=== PATIENT | male | born 1935 | race Two or more races ===

== ENCOUNTER 2021-08-14 09:39 | Inpatient (IN) | payer OTHER ==
[~2021-08-14] VITALS: Ht 177.8 cm; Wt 78.8 kg
[2021-08-14] MEDS ORDERED: methylPREDNISolone SOD SUCC 125 MG/2 ML VL ONE (09:46)
[2021-08-14] MEDS ORDERED: methylPREDNISolone SOD SUCC 125 MG/2 ML VL IV ONE (10:00)
[2021-08-14 10:19] LABS: Basophils # (auto) 0 10 ^3/uL (0-0.2); Eosinophils # (auto) 0 10 ^3/uL (0-0.8); Monocytes # (auto) 0.6 10 ^3/uL (0-1.3)
[2021-08-14 10:20] LABS: Basophils % (auto) 0.1 % (0.0-2.0); Hematocrit 52.7 % (41.0-53.0); Hemoglobin 18.1 g/dL (13.5-17.5); Lymphocytes % (auto) 11.3 % (10.0-50.0); Mean Corpuscular Hemoglobin 34.2 pg (28.0-32.0); Mean Corpuscular Hgb Conc. 34.4 g/dL (32.0-36.0); Mean Corpuscular Volume 99.3 fL (80.0-100.0); Monocytes % (auto) 6.5 % (0.0-12.0); Neutrophils # (auto) 7.5 10 ^3/uL (1.6-8.6); Neutrophils % (auto) 82.1 % (37.0-80.0); Nucleated Red Blood Cells % 0.1 %; Red Blood Cells 5.31 10^6/uL (4.5-5.90); Red Cell Distribution Width 13.4 % (11.8-14.3); White Blood Cell 9.2 10^3/uL (4.4-10.8)
[2021-08-14 10:24] LABS: Magnesium 2.6 mg/dL (1.6-2.6)
[2021-08-14 10:28] LABS: Albumin 3.4 g/dL (3.4-5.0); Calcium 8.5 mg/dL (8.5-10.1); Potassium 3.6 mmol/L (3.5-5.1)
[2021-08-14 10:32] LABS: Total Protein 8.3 g/dL (6.4-8.2)
[2021-08-14 10:35] LABS: CRP High Sensitivity 9.19 mg/dL (< 0.3); Lactic Acid w/Reflex 3.4 mmol/L (0.4-2.0)
[2021-08-14] MEDS ORDERED: ASPirin 81 mg TAB PO ONE (11:00)
[2021-08-14] MEDS ORDERED: cefTRIAXone 1GM/50ML D5W 50 ML IV ONE (11:00)
[2021-08-14] MEDS ORDERED: AZITHROMYCIN 500MG/ 250ML 250 ML IV ONE (11:00)
[2021-08-14] MEDS ORDERED: ZINC SULFATE 220mg CAP or TAB PO ONE (11:15)
[2021-08-14 11:22] LABS: INR 1.07 (0.9-1.15); Partial Thromboplastin Time 33.3 sec (23.6-33.0)
[2021-08-14] MEDS ORDERED: MORPHINE SULFATE INJECTION 2 MG/ML SYRG IV PRN (16:15)
[2021-08-14] MEDS ORDERED: NITROGLYCERIN 0.4 MG SL TAB SL PRN (16:15)
[2021-08-14] MEDS ORDERED: REMDESIVIR PER PHARMACY 0 ML IV SCH ×2 (16:15→17:45)
[2021-08-14] MEDS: SODIUM CHLORIDE 0.9% 1,000 ML IV SCH (16:28)
[2021-08-14] MEDS ORDERED: ATOR40TA52 PO (19:47)
[2021-08-14] MEDS ORDERED: AMLO-489 PO (19:47)
[2021-08-14 21:48] VITALS: BP 107/74
[2021-08-15 05:48] VITALS: BP 117/76
[2021-08-15 09:09] VITALS: BP 109/61
[2021-08-15] MEDS ORDERED: ENOXAPARIN SOD 40 MG/0.4 ML SYRINGE SC SCH (10:00)
[2021-08-15] MEDS: DexAMETHasone SOD PHOS 10MG/1ML VIAL INJ IV SCH (10:27)
[2021-08-15] MEDS: cefTRIAXone 1GM/50ML D5W 50 ML IV SCH (10:27)
[2021-08-15] MEDS: ASCORBIC ACID 500 MG TAB PO SCH (10:28)
[2021-08-15] MEDS: AZITHROMYCIN 500MG/ 250ML 250 ML IV SCH (10:28)
[2021-08-15] MEDS: ZINC SULFATE 220mg CAP or TAB PO SCH (10:28)
[2021-08-15] MEDS: CHOLECALCIFEROL (VITD3) 1,000UNIT=25mCg TAB PO SCH (10:28)
[2021-08-15 11:43] LABS: Basophils # (auto) 0 10 ^3/uL (0-0.2); Basophils % (auto) 0.2 % (0.0-2.0); Eosinophils # (auto) 0 10 ^3/uL (0-0.8); Hematocrit 47.3 % (41.0-53.0); Hemoglobin 15.9 g/dL (13.5-17.5); Lymphocytes # (auto) 0.8 10 ^3/uL (0.4-5.4); Lymphocytes % (auto) 5.3 % (10.0-50.0); Mean Corpuscular Hemoglobin 33.5 pg (28.0-32.0); Mean Corpuscular Hgb Conc. 33.6 g/dL (32.0-36.0); Monocytes # (auto) 0.9 10 ^3/uL (0-1.3); Neutrophils # (auto) 12.9 10 ^3/uL (1.6-8.6); Neutrophils % (auto) 88.5 % (37.0-80.0); Nucleated Red Blood Cells % 0.1 %; Red Blood Cells 4.73 10^6/uL (4.5-5.90); White Blood Cell 14.6 10^3/uL (4.4-10.8)
[2021-08-15 12:04] LABS: Potassium 4.2 mmol/L (3.5-5.1)
[2021-08-15 12:05] LABS: BUN/Creatinine Ratio 32.5; Calcium 8.1 mg/dL (8.5-10.1)
[2021-08-15] MEDS: SODIUM CHLORIDE 0.9% 1,000 ML IV SCH (12:30)
[2021-08-15 13:00] VITALS: BP 120/73
[2021-08-15 16:02] LABS: Albumin 2.5 g/dL (3.4-5.0); Bilirubin, Direct 0.4 mg/dL (0-0.2)
[2021-08-15 16:04] LABS: Bilirubin, Total 0.6 mg/dL (0.2-1.0); Total Protein 5.8 g/dL (6.4-8.2)
[2021-08-15 17:23] VITALS: BP 113/62
[2021-08-15 19:03] LABS: Urine Bacteria FEW /hpf (None Seen); Urine Blood 1+ /uL (Negative); Urine Hyaline Cast MANY /lpf (0 - 2); Urine Specific Gravity 1.017 (1.001-1.035); Urine WBC 3 /hpf (0 - 3)
[2021-08-15 19:21] LABS: Protein, Urine 69.4 mg/dL (0.0-11.9)
[2021-08-15 22:00] VITALS: BP 141/65
[2021-08-16 05:00] VITALS: BP 118/71
[2021-08-16 07:48] LABS: Albumin 2.7 g/dL (3.4-5.0); Calcium 8.2 mg/dL (8.5-10.1); Potassium 3.9 mmol/L (3.5-5.1)
[2021-08-16 07:59] LABS: BUN/Creatinine Ratio 37.3; Bilirubin, Total 0.8 mg/dL (0.2-1.0); Total Protein 6.4 g/dL (6.4-8.2)
[2021-08-16 08:00] VITALS: BP 113/79
[2021-08-16 09:18] VITALS: BP 113/75
[2021-08-16] MEDS: SODIUM CHLORIDE 0.9% 1,000 ML IV SCH (11:09)
[2021-08-16] MEDS: DexAMETHasone SOD PHOS 10MG/1ML VIAL INJ IV SCH (11:09)
[2021-08-16] MEDS: AZITHROMYCIN 500MG/ 250ML 250 ML IV SCH (11:09)
[2021-08-16] MEDS: cefTRIAXone 1GM/50ML D5W 50 ML IV SCH (11:09)
[2021-08-16] MEDS: ASCORBIC ACID 500 MG TAB PO SCH (11:11)
[2021-08-16] MEDS: CHOLECALCIFEROL (VITD3) 1,000UNIT=25mCg TAB PO SCH (11:11)
[2021-08-16] MEDS: ZINC SULFATE 220mg CAP or TAB PO SCH (11:11)
[2021-08-16] MEDS: HEPARIN SODIUM (PORCINE) 5000 UNITS/ML 1ML VIAL SC SCH ×2 (11:12→22:02)
[2021-08-16 12:35] VITALS: BP 113/79
[2021-08-16] MEDS: ALBUTEROL SULF HFA 90MCG INH 200DOSE IN SCH ×2 (15:20→22:00)
[2021-08-16 17:00] VITALS: BP 105/67
[2021-08-17] MEDS: SODIUM CHLORIDE 0.9% 1,000 ML IV SCH (02:32)
[2021-08-17 05:00] VITALS: BP 120/61
[2021-08-17 06:39] LABS: Basophils # (auto) 0 10 ^3/uL (0-0.2); Basophils % (auto) 0.2 % (0.0-2.0); Eosinophils # (auto) 0 10 ^3/uL (0-0.8); Hematocrit 47.7 % (41.0-53.0); Hemoglobin 16.2 g/dL (13.5-17.5); Lymphocytes # (auto) 0.5 10 ^3/uL (0.4-5.4); Lymphocytes % (auto) 3.1 % (10.0-50.0); Mean Corpuscular Hemoglobin 33.7 pg (28.0-32.0); Mean Corpuscular Hgb Conc. 33.9 g/dL (32.0-36.0); Mean Corpuscular Volume 99.4 fL (80.0-100.0); Monocytes # (auto) 0.8 10 ^3/uL (0-1.3); Monocytes % (auto) 5.4 % (0.0-12.0); Neutrophils # (auto) 13.9 10 ^3/uL (1.6-8.6); Neutrophils % (auto) 91.3 % (37.0-80.0); Red Cell Distribution Width 13.2 % (11.8-14.3); White Blood Cell 15.2 10^3/uL (4.4-10.8)
[2021-08-17 07:07] LABS: Albumin 2.7 g/dL (3.4-5.0)
[2021-08-17 07:16] LABS: BUN/Creatinine Ratio 40.5; Bilirubin, Total 0.8 mg/dL (0.2-1.0); CRP High Sensitivity 1.29 mg/dL (< 0.3); Total Protein 6.2 g/dL (6.4-8.2)
[2021-08-17 09:00] VITALS: BP 141/85
[2021-08-17] MEDS ORDERED: REMDESIVIR PER PHARMACY 0 ML IV SCH (09:30)
[2021-08-17] MEDS ORDERED: ALBUTEROL SULF HFA 90MCG INH 200DOSE IN PRN (09:30)
[2021-08-17] MEDS: DexAMETHasone SOD PHOS 10MG/1ML VIAL INJ IV SCH (10:18)
[2021-08-17] MEDS: ZINC SULFATE 220mg CAP or TAB PO SCH (10:18)
[2021-08-17] MEDS: ASCORBIC ACID 500 MG TAB PO SCH (10:18)
[2021-08-17] MEDS: cefTRIAXone 1GM/50ML D5W 50 ML IV SCH (10:18)
[2021-08-17] MEDS: CHOLECALCIFEROL (VITD3) 1,000UNIT=25mCg TAB PO SCH (10:19)
[2021-08-17] MEDS: HEPARIN SODIUM (PORCINE) 5000 UNITS/ML 1ML VIAL SC SCH ×2 (11:08→22:04)
[2021-08-17] MEDS: AZITHROMYCIN 500MG/ 250ML 250 ML IV SCH (11:44)
[2021-08-17 12:42] VITALS: BP 132/81
[2021-08-17] MEDS: DOPamine 1600MCG/ML D5W 250 ML IV SCH (14:59)
[2021-08-17] MEDS: SOD CHL 0.45% 1,000 ML IV SCH ×2 (14:59→22:13)
[2021-08-17] MEDS ORDERED: REMDESIVIR 200 MG in NS 210ml LOADING DOSE ADULT IV ONE (15:00)
[2021-08-17 17:00] VITALS: BP 119/78
[2021-08-17 22:00] VITALS: BP 148/102
[2021-08-18] VITALS (63 sets, daily range): BP systolic 59–177; BP diastolic 28–113
[2021-08-18 06:28] LABS: Potassium 4.3 mmol/L (3.5-5.1)
[2021-08-18 06:42] LABS: Albumin 2.7 g/dL (3.4-5.0); BUN/Creatinine Ratio 32.5; Total Protein 6.5 g/dL (6.4-8.2)
[2021-08-18] MEDS: SOD CHL 0.45% 1,000 ML IV SCH (08:45)
[2021-08-18] MEDS ORDERED: MIDAZOLAM DRIP 50 mg/50mL 50 ML IV ONE ×2 (08:48→08:51)
[2021-08-18] MEDS ORDERED: fentaNYL Drip 2500mCg/250mlNS 250 ML IV ONE (08:49)
[2021-08-18] MEDS ORDERED: PROPOFOL 100 ML IV ONE (08:51)
[2021-08-18] MEDS ORDERED: METOPROLOL TARTRATE 1MG/1ML-5ML VIAL IV PRN (09:45)
[2021-08-18] MEDS ORDERED: NOREPINEPHRINE 8 MG/250ML KIT 250 ML IV ONE (10:04)
[2021-08-18] MEDS ORDERED: ACETAMINOPHEN 650 MG RECT SUPP PR PRN (10:30)
[2021-08-18] MEDS: DOPamine 1600MCG/ML D5W 250 ML IV SCH (12:45)
[2021-08-18] MEDS: AZITHROMYCIN 500MG/ 250ML 250 ML IV SCH (12:47)
[2021-08-18] MEDS: DexAMETHasone SOD PHOS 10MG/1ML VIAL INJ IV SCH (12:47)
[2021-08-18] MEDS: cefTRIAXone 1GM/50ML D5W 50 ML IV SCH (12:47)
[2021-08-18] MEDS: ZINC SULFATE 220mg CAP or TAB PO SCH (12:48)
[2021-08-18] MEDS: HEPARIN SODIUM (PORCINE) 5000 UNITS/ML 1ML VIAL SC SCH (12:48)
[2021-08-18] MEDS: CHOLECALCIFEROL (VITD3) 1,000UNIT=25mCg TAB PO SCH (12:48)
[2021-08-18] MEDS: ASCORBIC ACID 500 MG TAB PO SCH (12:48)
[2021-08-18] MEDS: fentaNYL Drip 2500mCg/250mlNS 250 ML IV SCH (12:49)
[2021-08-18] MEDS: PROPOFOL 100 ML IV SCH (12:49)
[2021-08-18] MEDS: MIDAZOLAM DRIP 50 mg/50mL 50 ML IV SCH (12:50)
[2021-08-18] MEDS: NOREPINEPHRINE 8 MG/250ML KIT 250 ML IV SCH (12:50)
[2021-08-18 13:00] LABS: Albumin 2.3 g/dL (3.4-5.0); Calcium 7.6 mg/dL (8.5-10.1); Potassium 4.3 mmol/L (3.5-5.1)
[2021-08-18 13:03] LABS: Bilirubin, Total 0.7 mg/dL (0.2-1.0); Total Protein 5.8 g/dL (6.4-8.2)
[2021-08-18 13:14] LABS: Hematocrit 47.2 % (41.0-53.0); Hemoglobin 15.5 g/dL (13.5-17.5); Mean Corpuscular Hemoglobin 33.3 pg (28.0-32.0); Mean Corpuscular Hgb Conc. 32.9 g/dL (32.0-36.0); Mean Corpuscular Volume 101.3 fL (80.0-100.0); Red Blood Cells 4.66 10^6/uL (4.5-5.90); Red Cell Distribution Width 13.6 % (11.8-14.3)
[2021-08-18 13:23] LABS: Basophils % (manual) 0 (0.0-2.0); Blast Cells 0; Eosinophils % (manual) 0 (0-7); Metamyelocytes % 0; Myelocytes % 0; Promyelocytes % 0; Reactive Lymphocytes 0
[2021-08-18 13:48] LABS: Band Neutrophils % (manual) 15; Lymphocytes % (manual) 3 (10.0-50.0); Monocytes % (manual) 4 (0-12)
[2021-08-18 14:05] LABS: CRP High Sensitivity 5.08 mg/dL (< 0.3)
[2021-08-18] MEDS ORDERED: SODIUM BICARBONATE 8.4 % INJ 50ML VIAL IV ONE (15:00)
[2021-08-18] MEDS ORDERED: REMDESIVIR 100mg 100 MG in SODIUM CHL 0.9% 230 ML IV SCH (15:00)
[2021-08-19] VITALS (90 sets, daily range): BP systolic 80–153; BP diastolic 42–86
[2021-08-19] MEDS: HEPARIN SODIUM (PORCINE) 5000 UNITS/ML 1ML VIAL SC SCH ×3 (02:19→21:35)
[2021-08-19] MEDS: SOD CHL 0.45% 1,000 ML IV SCH ×2 (02:52→04:45)
[2021-08-19] MEDS: fentaNYL Drip 2500mCg/250mlNS 250 ML IV SCH ×2 (03:00→16:16)
[2021-08-19] MEDS: MIDAZOLAM DRIP 50 mg/50mL 50 ML IV SCH ×2 (04:00→23:39)
[2021-08-19] MEDS: PROPOFOL 100 ML IV SCH ×3 (04:00→21:39)
[2021-08-19 05:05] LABS: Calcium 7.1 mg/dL (8.5-10.1); Magnesium 3.2 mg/dL (1.6-2.6); Potassium 4.3 mmol/L (3.5-5.1)
[2021-08-19 05:14] LABS: BUN/Creatinine Ratio 19.3; Bilirubin, Total 0.6 mg/dL (0.2-1.0); CRP High Sensitivity 15.6 mg/dL (< 0.3); Total Protein 4.9 g/dL (6.4-8.2)
[2021-08-19] MEDS: cefTRIAXone 1GM/50ML D5W 50 ML IV SCH (08:33)
[2021-08-19] MEDS: ZINC SULFATE 220mg CAP or TAB PO SCH (08:55)
[2021-08-19] MEDS: ASCORBIC ACID 500 MG TAB PO SCH (08:55)
[2021-08-19] MEDS: CHOLECALCIFEROL (VITD3) 1,000UNIT=25mCg TAB PO SCH (08:56)
[2021-08-19] MEDS: DexAMETHasone SOD PHOS 10MG/1ML VIAL INJ IV SCH (08:56)
[2021-08-19] MEDS: AZITHROMYCIN 500MG/ 250ML 250 ML IV SCH (08:57)
[2021-08-19] MEDS: D5W 5% 1,000 ML IV SCH ×2 (09:46→17:00)
[2021-08-19 12:17] LABS: Basophils # (auto) 0.1 10 ^3/uL (0-0.2); Basophils % (auto) 0.9 % (0.0-2.0); Eosinophils # (auto) 0 10 ^3/uL (0-0.8); Eosinophils % (auto) 0.3 % (0.0-7.0); Hematocrit 42.5 % (41.0-53.0); Hemoglobin 14.1 g/dL (13.5-17.5); Lymphocytes # (auto) 0.3 10 ^3/uL (0.4-5.4); Lymphocytes % (auto) 2.7 % (10.0-50.0); Mean Corpuscular Hemoglobin 33.8 pg (28.0-32.0); Mean Corpuscular Hgb Conc. 33.3 g/dL (32.0-36.0); Mean Corpuscular Volume 101.5 fL (80.0-100.0); Monocytes # (auto) 0.2 10 ^3/uL (0-1.3); Monocytes % (auto) 1.7 % (0.0-12.0); Neutrophils # (auto) 11.1 10 ^3/uL (1.6-8.6); Neutrophils % (auto) 94.4 % (37.0-80.0); Nucleated Red Blood Cells % 0.2 %; Red Blood Cells 4.19 10^6/uL (4.5-5.90); Red Cell Distribution Width 13.9 % (11.8-14.3); White Blood Cell 11.8 10^3/uL (4.4-10.8)
[2021-08-19] MEDS: DOPamine 1600MCG/ML D5W 250 ML IV SCH (12:45)
[2021-08-19 12:52] LABS: Potassium 4.7 mmol/L (3.5-5.1)
[2021-08-19 12:59] LABS: Albumin 1.9 g/dL (3.4-5.0); BUN/Creatinine Ratio 19.6; Bilirubin, Total 0.6 mg/dL (0.2-1.0); Calcium 7.1 mg/dL (8.5-10.1)
[2021-08-19] MEDS: NOREPINEPHRINE 8 MG/250ML KIT 250 ML IV SCH (17:58)
[2021-08-20] VITALS (93 sets, daily range): BP systolic 62–173; BP diastolic 36–96
[2021-08-20] MEDS: fentaNYL Drip 2500mCg/250mlNS 250 ML IV SCH ×2 (02:57→18:08)
[2021-08-20] MEDS: D5W 5% 1,000 ML IV SCH (04:48)
[2021-08-20] MEDS: MIDAZOLAM DRIP 50 mg/50mL 50 ML IV SCH ×4 (04:49→23:10)
[2021-08-20] MEDS: PROPOFOL 100 ML IV SCH ×3 (04:50→23:00)
[2021-08-20 04:56] LABS: Basophils # (auto) 0 10 ^3/uL (0-0.2); Basophils % (auto) 0.2 % (0.0-2.0); Eosinophils # (auto) 0 10 ^3/uL (0-0.8); Hematocrit 38.8 % (41.0-53.0); Lymphocytes # (auto) 0.2 10 ^3/uL (0.4-5.4); Lymphocytes % (auto) 2.2 % (10.0-50.0); Mean Corpuscular Hgb Conc. 33.6 g/dL (32.0-36.0); Mean Corpuscular Volume 101.1 fL (80.0-100.0); Monocytes # (auto) 0.1 10 ^3/uL (0-1.3); Monocytes % (auto) 0.9 % (0.0-12.0); Neutrophils # (auto) 11.2 10 ^3/uL (1.6-8.6); Neutrophils % (auto) 96.7 % (37.0-80.0); Nucleated Red Blood Cells % 0.2 %; Red Blood Cells 3.83 10^6/uL (4.5-5.90); Red Cell Distribution Width 13.9 % (11.8-14.3); White Blood Cell 11.6 10^3/uL (4.4-10.8)
[2021-08-20 05:06] LABS: Albumin 1.7 g/dL (3.4-5.0); Calcium 6.6 mg/dL (8.5-10.1); Potassium 4.2 mmol/L (3.5-5.1)
[2021-08-20 05:16] LABS: BUN/Creatinine Ratio 19.6; Bilirubin, Total 0.3 mg/dL (0.2-1.0); CRP High Sensitivity 17.9 mg/dL (< 0.3); Total Protein 4.6 g/dL (6.4-8.2)
[2021-08-20] MEDS: ZINC SULFATE 220mg CAP or TAB PO SCH (08:58)
[2021-08-20] MEDS: AZITHROMYCIN 500MG/ 250ML 250 ML IV SCH (08:58)
[2021-08-20] MEDS: DexAMETHasone SOD PHOS 10MG/1ML VIAL INJ IV SCH (08:58)
[2021-08-20] MEDS: cefTRIAXone 1GM/50ML D5W 50 ML IV SCH (08:58)
[2021-08-20] MEDS: ASCORBIC ACID 500 MG TAB PO SCH (08:59)
[2021-08-20] MEDS: CHOLECALCIFEROL (VITD3) 1,000UNIT=25mCg TAB PO SCH (08:59)
[2021-08-20] MEDS: HEPARIN SODIUM (PORCINE) 5000 UNITS/ML 1ML VIAL SC SCH ×2 (09:04→22:12)
[2021-08-20] MEDS: NOREPINEPHRINE 8 MG/250ML KIT 250 ML IV SCH (10:30)
[2021-08-20] MEDS: DOPamine 1600MCG/ML D5W 250 ML IV SCH (12:45)
[2021-08-20] MEDS: SOD CHL 0.45% 1,000 ML IV SCH ×3 (15:03→22:59)
[2021-08-21] VITALS (57 sets, daily range): BP systolic 94–145; BP diastolic 52–76
[2021-08-21 04:38] LABS: Basophils # (auto) 0.1 10 ^3/uL (0-0.2); Eosinophils # (auto) 0 10 ^3/uL (0-0.8); White Blood Cell 11.5 10^3/uL (4.4-10.8)
[2021-08-21 04:41] LABS: Basophils % (auto) 0.7 % (0.0-2.0); Hematocrit 37.5 % (41.0-53.0); Hemoglobin 12.6 g/dL (13.5-17.5); Lymphocytes # (auto) 0.2 10 ^3/uL (0.4-5.4); Lymphocytes % (auto) 2.1 % (10.0-50.0); Mean Corpuscular Hemoglobin 33.8 pg (28.0-32.0); Mean Corpuscular Hgb Conc. 33.7 g/dL (32.0-36.0); Mean Corpuscular Volume 100.3 fL (80.0-100.0); Monocytes # (auto) 0.4 10 ^3/uL (0-1.3); Monocytes % (auto) 3.3 % (0.0-12.0); Neutrophils # (auto) 10.8 10 ^3/uL (1.6-8.6); Neutrophils % (auto) 93.9 % (37.0-80.0); Nucleated Red Blood Cells % 0.1 %; Red Blood Cells 3.74 10^6/uL (4.5-5.90); Red Cell Distribution Width 13.7 % (11.8-14.3)
[2021-08-21 04:56] LABS: Albumin 1.6 g/dL (3.4-5.0); Calcium 6.8 mg/dL (8.5-10.1); Potassium 4.4 mmol/L (3.5-5.1)
[2021-08-21 05:01] LABS: BUN/Creatinine Ratio 20.7; Bilirubin, Total 0.3 mg/dL (0.2-1.0); Total Protein 4.5 g/dL (6.4-8.2)
[2021-08-21] MEDS: cefTRIAXone 1GM/50ML D5W 50 ML IV SCH (09:24)
[2021-08-21] MEDS ORDERED: Jevity 1.2 Cal/Fiber 1 Liter GT SCH (10:00)
[2021-08-21] MEDS: ASCORBIC ACID 500 MG TAB PO SCH (10:12)
[2021-08-21] MEDS: AZITHROMYCIN 500MG/ 250ML 250 ML IV SCH (10:12)
[2021-08-21] MEDS: HEPARIN SODIUM (PORCINE) 5000 UNITS/ML 1ML VIAL SC SCH ×2 (10:13→21:33)
[2021-08-21] MEDS: ZINC SULFATE 220mg CAP or TAB PO SCH (10:14)
[2021-08-21] MEDS: CHOLECALCIFEROL (VITD3) 1,000UNIT=25mCg TAB PO SCH (10:14)
[2021-08-21] MEDS: DexAMETHasone SOD PHOS 10MG/1ML VIAL INJ IV SCH (10:15)
[2021-08-21] MEDS: NOREPINEPHRINE 8 MG/250ML KIT 250 ML IV SCH (10:30)
[2021-08-21] MEDS: SOD CHL 0.45% 1,000 ML IV SCH ×2 (10:45→19:30)
[2021-08-21] MEDS: DOPamine 1600MCG/ML D5W 250 ML IV SCH (12:45)
[2021-08-21] MEDS: MIDAZOLAM DRIP 50 mg/50mL 50 ML IV SCH (21:35)
[2021-08-22] VITALS (22 sets, daily range): BP systolic 101–143; BP diastolic 45–72
[2021-08-22] MEDS: MIDAZOLAM DRIP 50 mg/50mL 50 ML IV SCH ×2 (00:36→04:58)
[2021-08-22 04:24] LABS: Basophils # (auto) 0 10 ^3/uL (0-0.2); Eosinophils # (auto) 0 10 ^3/uL (0-0.8)
[2021-08-22 04:27] LABS: Basophils % (auto) 0.3 % (0.0-2.0); Hematocrit 37.6 % (41.0-53.0); Lymphocytes # (auto) 0.2 10 ^3/uL (0.4-5.4); Lymphocytes % (auto) 2.2 % (10.0-50.0); Mean Corpuscular Hemoglobin 34.5 pg (28.0-32.0); Mean Corpuscular Hgb Conc. 34.5 g/dL (32.0-36.0); Mean Corpuscular Volume 100.1 fL (80.0-100.0); Monocytes # (auto) 0.5 10 ^3/uL (0-1.3); Monocytes % (auto) 5.3 % (0.0-12.0); Neutrophils # (auto) 9.1 10 ^3/uL (1.6-8.6); Neutrophils % (auto) 92.2 % (37.0-80.0); Nucleated Red Blood Cells % 0.1 %; Red Blood Cells 3.75 10^6/uL (4.5-5.90); Red Cell Distribution Width 13.5 % (11.8-14.3); White Blood Cell 9.8 10^3/uL (4.4-10.8)
[2021-08-22 04:38] LABS: Potassium 4.7 mmol/L (3.5-5.1)
[2021-08-22 04:52] LABS: Albumin 1.7 g/dL (3.4-5.0); BUN/Creatinine Ratio 23.6; Bilirubin, Total 0.3 mg/dL (0.2-1.0); Calcium 6.6 mg/dL (8.5-10.1); Total Protein 4.7 g/dL (6.4-8.2)
[2021-08-22] MEDS: SOD CHL 0.45% 1,000 ML IV SCH ×3 (04:59→13:45)
[2021-08-22] MEDS: PROPOFOL 100 ML IV SCH ×2 (05:00→19:01)
[2021-08-22] MEDS: fentaNYL Drip 2500mCg/250mlNS 250 ML IV SCH ×2 (07:52→18:58)
[2021-08-22] MEDS: cefTRIAXone 1GM/50ML D5W 50 ML IV SCH (08:36)
[2021-08-22] MEDS: ZINC SULFATE 220mg CAP or TAB PO SCH (10:13)
[2021-08-22] MEDS: CHOLECALCIFEROL (VITD3) 1,000UNIT=25mCg TAB PO SCH (10:13)
[2021-08-22] MEDS: AZITHROMYCIN 500MG/ 250ML 250 ML IV SCH ×2 (10:13→12:13)
[2021-08-22] MEDS: ASCORBIC ACID 500 MG TAB PO SCH (10:13)
[2021-08-22] MEDS: DexAMETHasone SOD PHOS 10MG/1ML VIAL INJ IV SCH (10:13)
[2021-08-22] MEDS: HEPARIN SODIUM (PORCINE) 5000 UNITS/ML 1ML VIAL SC SCH ×2 (10:14→23:37)
[2021-08-22] MEDS: NOREPINEPHRINE 8 MG/250ML KIT 250 ML IV SCH (10:30)
[2021-08-22] MEDS: DOPamine 1600MCG/ML D5W 250 ML IV SCH (12:45)
[2021-08-22] MEDS: BACITRACIN TOP OINT 1 UD PKG TOP SCH (23:38)
[2021-08-23] VITALS (19 sets, daily range): BP systolic 112–145; BP diastolic 57–76
[2021-08-23 04:33] LABS: Basophils # (auto) 0 10 ^3/uL (0-0.2); Eosinophils # (auto) 0.1 10 ^3/uL (0-0.8); Hematocrit 37.6 % (41.0-53.0); Hemoglobin 12.7 g/dL (13.5-17.5); Lymphocytes # (auto) 0.3 10 ^3/uL (0.4-5.4); Lymphocytes % (auto) 3.6 % (10.0-50.0); Mean Corpuscular Hemoglobin 33.5 pg (28.0-32.0); Mean Corpuscular Hgb Conc. 33.7 g/dL (32.0-36.0); Mean Corpuscular Volume 99.3 fL (80.0-100.0); Monocytes # (auto) 0.2 10 ^3/uL (0-1.3); Monocytes % (auto) 2.7 % (0.0-12.0); Neutrophils # (auto) 7.6 10 ^3/uL (1.6-8.6); Neutrophils % (auto) 92.7 % (37.0-80.0); Red Blood Cells 3.79 10^6/uL (4.5-5.90); Red Cell Distribution Width 13.1 % (11.8-14.3); White Blood Cell 8.1 10^3/uL (4.4-10.8)
[2021-08-23 04:45] LABS: Albumin 1.4 g/dL (3.4-5.0); Calcium 6.9 mg/dL (8.5-10.1); Potassium 4.8 mmol/L (3.5-5.1)
[2021-08-23 04:50] LABS: BUN/Creatinine Ratio 32.2; Bilirubin, Total 0.3 mg/dL (0.2-1.0)
[2021-08-23] MEDS: cefTRIAXone 1GM/50ML D5W 50 ML IV SCH (09:32)
[2021-08-23] MEDS: ZINC SULFATE 220mg CAP or TAB PO SCH (09:35)
[2021-08-23] MEDS: ASCORBIC ACID 500 MG TAB PO SCH (09:35)
[2021-08-23] MEDS: DexAMETHasone SOD PHOS 10MG/1ML VIAL INJ IV SCH (09:35)
[2021-08-23] MEDS: CHOLECALCIFEROL (VITD3) 1,000UNIT=25mCg TAB PO SCH (09:36)
[2021-08-23] MEDS: HEPARIN SODIUM (PORCINE) 5000 UNITS/ML 1ML VIAL SC SCH ×2 (09:37→22:00)
[2021-08-23] MEDS: NOREPINEPHRINE 8 MG/250ML KIT 250 ML IV SCH (10:30)
[2021-08-23] MEDS: DOPamine 1600MCG/ML D5W 250 ML IV SCH (12:45)
[2021-08-23] MEDS: SOD CHL 0.45% 1,000 ML IV SCH (16:55)
[2021-08-23] MEDS: BACITRACIN TOP OINT 1 UD PKG TOP SCH ×2 (16:55→22:00)
[2021-08-24] VITALS (40 sets, daily range): BP systolic 90–155; BP diastolic 43–77
[2021-08-24 06:41] LABS: Basophils # (auto) 0.5 10 ^3/uL (0-0.2); Basophils % (auto) 5.8 % (0.0-2.0); Eosinophils # (auto) 0 10 ^3/uL (0-0.8); Eosinophils % (auto) 0.4 % (0.0-7.0); Hematocrit 39.7 % (41.0-53.0); Lymphocytes # (auto) 0.5 10 ^3/uL (0.4-5.4); Lymphocytes % (auto) 5.1 % (10.0-50.0); Mean Corpuscular Hemoglobin 33.2 pg (28.0-32.0); Mean Corpuscular Hgb Conc. 32.7 g/dL (32.0-36.0); Mean Corpuscular Volume 101.3 fL (80.0-100.0); Monocytes # (auto) 0.8 10 ^3/uL (0-1.3); Monocytes % (auto) 8.3 % (0.0-12.0); Neutrophils # (auto) 7.6 10 ^3/uL (1.6-8.6); Neutrophils % (auto) 80.4 % (37.0-80.0); Nucleated Red Blood Cells % 0.1 %; Red Blood Cells 3.92 10^6/uL (4.5-5.90); Red Cell Distribution Width 13.6 % (11.8-14.3); White Blood Cell 9.4 10^3/uL (4.4-10.8)
[2021-08-24] MEDS: MIDAZOLAM DRIP 50 mg/50mL 50 ML IV SCH ×2 (08:08→14:01)
[2021-08-24] MEDS ORDERED: SODIUM BICARBONATE 8.4 % INJ 50ML VIAL IV ONE ×2 (09:30→09:51)
[2021-08-24] MEDS: cefTRIAXone 1GM/50ML D5W 50 ML IV SCH (09:35)
[2021-08-24] MEDS: ASCORBIC ACID 500 MG TAB PO SCH (09:36)
[2021-08-24] MEDS: ZINC SULFATE 220mg CAP or TAB PO SCH (09:36)
[2021-08-24] MEDS: DexAMETHasone SOD PHOS 10MG/1ML VIAL INJ IV SCH (09:36)
[2021-08-24] MEDS: CHOLECALCIFEROL (VITD3) 1,000UNIT=25mCg TAB PO SCH (09:37)
[2021-08-24] MEDS: BACITRACIN TOP OINT 1 UD PKG TOP SCH ×2 (09:37→22:00)
[2021-08-24 09:38] LABS: Albumin 1.6 g/dL (3.4-5.0); Calcium 6.9 mg/dL (8.5-10.1); Potassium 4.8 mmol/L (3.5-5.1)
[2021-08-24 09:42] LABS: BUN/Creatinine Ratio 34.6; Bilirubin, Total 0.3 mg/dL (0.2-1.0); Total Protein 4.2 g/dL (6.4-8.2)
[2021-08-24] MEDS: AZITHROMYCIN 500MG/ 250ML 250 ML IV SCH (10:07)
[2021-08-24] MEDS: HEPARIN SODIUM (PORCINE) 5000 UNITS/ML 1ML VIAL SC SCH ×2 (10:08→22:00)
[2021-08-24] MEDS: NOREPINEPHRINE 8 MG/250ML KIT 250 ML IV SCH (10:30)
[2021-08-24] MEDS: PROPOFOL 100 ML IV SCH (10:43)
[2021-08-24] MEDS: DOPamine 1600MCG/ML D5W 250 ML IV SCH (12:45)
[2021-08-24] MEDS: fentaNYL Drip 2500mCg/250mlNS 250 ML IV SCH (13:45)
[2021-08-25] VITALS (29 sets, daily range): BP systolic 101–148; BP diastolic 49–77
[2021-08-25 06:12] LABS: Basophils # (auto) 0 10 ^3/uL (0-0.2); Basophils % (auto) 0.1 % (0.0-2.0); Eosinophils # (auto) 0 10 ^3/uL (0-0.8); Eosinophils % (auto) 0.6 % (0.0-7.0); Hematocrit 39.1 % (41.0-53.0); Lymphocytes # (auto) 0.5 10 ^3/uL (0.4-5.4); Lymphocytes % (auto) 5.6 % (10.0-50.0); Mean Corpuscular Hemoglobin 33.6 pg (28.0-32.0); Mean Corpuscular Hgb Conc. 33.4 g/dL (32.0-36.0); Mean Corpuscular Volume 100.8 fL (80.0-100.0); Monocytes # (auto) 0.6 10 ^3/uL (0-1.3); Monocytes % (auto) 7.8 % (0.0-12.0); Neutrophils % (auto) 85.9 % (37.0-80.0); Nucleated Red Blood Cells % 0.1 %; Red Blood Cells 3.87 10^6/uL (4.5-5.90); Red Cell Distribution Width 13.5 % (11.8-14.3); White Blood Cell 8.1 10^3/uL (4.4-10.8)
[2021-08-25 06:48] LABS: Albumin 1.4 g/dL (3.4-5.0); Calcium 6.8 mg/dL (8.5-10.1); Potassium 4.8 mmol/L (3.5-5.1)
[2021-08-25 06:52] LABS: BUN/Creatinine Ratio 43.3; Bilirubin, Total 0.2 mg/dL (0.2-1.0); Total Protein 4.1 g/dL (6.4-8.2)
[2021-08-25] MEDS: cefTRIAXone 1GM/50ML D5W 50 ML IV SCH (09:28)
[2021-08-25] MEDS: DexAMETHasone SOD PHOS 10MG/1ML VIAL INJ IV SCH (09:58)
[2021-08-25] MEDS: ZINC SULFATE 220mg CAP or TAB PO SCH (09:58)
[2021-08-25] MEDS: ASCORBIC ACID 500 MG TAB PO SCH (09:59)
[2021-08-25] MEDS: HEPARIN SODIUM (PORCINE) 5000 UNITS/ML 1ML VIAL SC SCH ×2 (10:00→23:07)
[2021-08-25] MEDS: BACITRACIN TOP OINT 1 UD PKG TOP SCH ×2 (10:03→23:08)
[2021-08-25] MEDS: MIDAZOLAM DRIP 50 mg/50mL 50 ML IV SCH ×2 (10:30→20:49)
[2021-08-25] MEDS: NOREPINEPHRINE 8 MG/250ML KIT 250 ML IV SCH (10:30)
[2021-08-25] MEDS: AZITHROMYCIN 500MG/ 250ML 250 ML IV SCH (12:02)
[2021-08-25] MEDS: CHOLECALCIFEROL (VITD3) 1,000UNIT=25mCg TAB PO SCH (12:02)
[2021-08-25] MEDS: fentaNYL Drip 2500mCg/250mlNS 250 ML IV SCH ×2 (12:03→18:21)
[2021-08-25] MEDS: PROPOFOL 100 ML IV SCH ×2 (12:03→20:49)
[2021-08-25] MEDS: DOPamine 1600MCG/ML D5W 250 ML IV SCH (12:45)
[2021-08-25] MEDS: SOD CHL 0.45% 1,000 ML IV SCH ×2 (20:47→23:09)
[2021-08-26] VITALS (15 sets, daily range): BP systolic 88–177; BP diastolic 47–90
[2021-08-26] MEDS: hydrALAZINE HCL 20 MG/ML VL IV PRN ×2 (01:42→20:45)
[2021-08-26 04:44] LABS: Basophils # (auto) 0 10 ^3/uL (0-0.2); Basophils % (auto) 0.2 % (0.0-2.0); Eosinophils # (auto) 0.3 10 ^3/uL (0-0.8); Eosinophils % (auto) 2.3 % (0.0-7.0); Hematocrit 39.1 % (41.0-53.0); Hemoglobin 13.2 g/dL (13.5-17.5); Lymphocytes # (auto) 0.5 10 ^3/uL (0.4-5.4); Lymphocytes % (auto) 4.3 % (10.0-50.0); Mean Corpuscular Hemoglobin 33.4 pg (28.0-32.0); Mean Corpuscular Hgb Conc. 33.6 g/dL (32.0-36.0); Mean Corpuscular Volume 99.4 fL (80.0-100.0); Monocytes # (auto) 0.9 10 ^3/uL (0-1.3); Monocytes % (auto) 8.3 % (0.0-12.0); Neutrophils # (auto) 9.4 10 ^3/uL (1.6-8.6); Neutrophils % (auto) 84.9 % (37.0-80.0); Red Blood Cells 3.94 10^6/uL (4.5-5.90); Red Cell Distribution Width 13.4 % (11.8-14.3); White Blood Cell 11.1 10^3/uL (4.4-10.8)
[2021-08-26] MEDS: MIDAZOLAM DRIP 50 mg/50mL 50 ML IV SCH ×2 (04:51→18:16)
[2021-08-26 05:07] LABS: Albumin 1.5 g/dL (3.4-5.0); BUN/Creatinine Ratio 45.3; Calcium 6.9 mg/dL (8.5-10.1); Potassium 4.8 mmol/L (3.5-5.1)
[2021-08-26 05:10] LABS: Bilirubin, Total 0.3 mg/dL (0.2-1.0); Total Protein 4.2 g/dL (6.4-8.2)
[2021-08-26] MEDS: cefTRIAXone 1GM/50ML D5W 50 ML IV SCH (09:00)
[2021-08-26] MEDS: AZITHROMYCIN 500MG/ 250ML 250 ML IV SCH (10:28)
[2021-08-26] MEDS: ASCORBIC ACID 500 MG TAB PO SCH (10:28)
[2021-08-26] MEDS: DexAMETHasone SOD PHOS 10MG/1ML VIAL INJ IV SCH (10:28)
[2021-08-26] MEDS: ZINC SULFATE 220mg CAP or TAB PO SCH (10:28)
[2021-08-26] MEDS: CHOLECALCIFEROL (VITD3) 1,000UNIT=25mCg TAB PO SCH (10:28)
[2021-08-26] MEDS: HEPARIN SODIUM (PORCINE) 5000 UNITS/ML 1ML VIAL SC SCH ×2 (10:29→22:29)
[2021-08-26] MEDS: BACITRACIN TOP OINT 1 UD PKG TOP SCH ×2 (10:29→22:30)
[2021-08-26] MEDS: fentaNYL Drip 2500mCg/250mlNS 250 ML IV SCH (10:30)
[2021-08-26] MEDS: NOREPINEPHRINE 8 MG/250ML KIT 250 ML IV SCH (10:30)
[2021-08-26] MEDS: SOD CHL 0.45% 1,000 ML IV SCH (11:05)
[2021-08-26] MEDS: DOPamine 1600MCG/ML D5W 250 ML IV SCH (12:45)
[2021-08-26] MEDS ORDERED: METOCLOPRAMIDE HCL 5MG/ml INJ 2ml VIAL IV PRN ×2 (17:15)
[2021-08-26] MEDS: ALBUTEROL SULF 2.5 MG/0.5ML(0.5%) NEB SOLN NEB PRN (18:53)
[2021-08-26] MEDS: PROPOFOL 100 ML IV SCH (20:46)
[2021-08-27] VITALS (14 sets, daily range): BP systolic 94–193; BP diastolic 53–123
[2021-08-27] MEDS: PROPOFOL 100 ML IV SCH (01:43)
[2021-08-27 05:15] LABS: Basophils # (auto) 0 10 ^3/uL (0-0.2); Basophils % (auto) 0.2 % (0.0-2.0); Eosinophils # (auto) 0.1 10 ^3/uL (0-0.8); Eosinophils % (auto) 0.6 % (0.0-7.0); Hemoglobin 11.5 g/dL (13.5-17.5); Lymphocytes # (auto) 0.6 10 ^3/uL (0.4-5.4); Lymphocytes % (auto) 4.5 % (10.0-50.0); Mean Corpuscular Hemoglobin 33.8 pg (28.0-32.0); Mean Corpuscular Hgb Conc. 33.9 g/dL (32.0-36.0); Mean Corpuscular Volume 99.7 fL (80.0-100.0); Monocytes # (auto) 0.9 10 ^3/uL (0-1.3); Monocytes % (auto) 7.4 % (0.0-12.0); Neutrophils # (auto) 10.9 10 ^3/uL (1.6-8.6); Neutrophils % (auto) 87.3 % (37.0-80.0); Nucleated Red Blood Cells % 0.2 %; Red Blood Cells 3.41 10^6/uL (4.5-5.90); Red Cell Distribution Width 13.3 % (11.8-14.3); White Blood Cell 12.4 10^3/uL (4.4-10.8)
[2021-08-27 05:39] LABS: Albumin 1.4 g/dL (3.4-5.0); Calcium 6.9 mg/dL (8.5-10.1); Potassium 4.8 mmol/L (3.5-5.1)
[2021-08-27 05:43] LABS: BUN/Creatinine Ratio 46.6; Bilirubin, Total 0.3 mg/dL (0.2-1.0); Total Protein 4.2 g/dL (6.4-8.2)
[2021-08-27] MEDS: SOD CHL 0.45% 1,000 ML IV SCH ×2 (06:44→13:45)
[2021-08-27] MEDS: cefTRIAXone 1GM/50ML D5W 50 ML IV SCH (09:24)
[2021-08-27] MEDS ORDERED: LABETALOL HCL 5 MG/ML 4ML SYRINGE IV ONE ×2 (09:29→09:42)
[2021-08-27] MEDS: DexAMETHasone SOD PHOS 10MG/1ML VIAL INJ IV SCH (10:00)
[2021-08-27] MEDS ORDERED: TPN PER PHARMACY 0 ML IV SCH (10:00)
[2021-08-27] MEDS: ZINC SULFATE 220mg CAP or TAB PO SCH (10:00)
[2021-08-27] MEDS: BACITRACIN TOP OINT 1 UD PKG TOP SCH ×2 (10:00→22:48)
[2021-08-27] MEDS: AZITHROMYCIN 500MG/ 250ML 250 ML IV SCH (10:00)
[2021-08-27] MEDS: CHOLECALCIFEROL (VITD3) 1,000UNIT=25mCg TAB PO SCH (10:00)
[2021-08-27] MEDS: ASCORBIC ACID 500 MG TAB PO SCH (10:00)
[2021-08-27] MEDS: HEPARIN SODIUM (PORCINE) 5000 UNITS/ML 1ML VIAL SC SCH ×2 (10:00→22:48)
[2021-08-27] MEDS: fentaNYL Drip 2500mCg/250mlNS 250 ML IV SCH (10:30)
[2021-08-27] MEDS: NOREPINEPHRINE 8 MG/250ML KIT 250 ML IV SCH (10:30)
[2021-08-27 10:45] LABS: Magnesium 1.7 mg/dL (1.6-2.6)
[2021-08-27 10:52] LABS: Phosphorus 3.9 mg/dL (2.5-4.90); Pre Albumin 27.2 mg/dL (20.0-40.0)
[2021-08-27] MEDS: DOPamine 1600MCG/ML D5W 250 ML IV SCH (12:45)
[2021-08-27] MEDS: TPN PER PHARMACY IV NR ×6 (21:37)
[2021-08-28] VITALS (55 sets, daily range): BP systolic 118–176; BP diastolic 54–86
[2021-08-28] MEDS ORDERED: DEXTROSE (50%) 50ML SYRG IV SCH
[2021-08-28] MEDS: InsuLIN REG 1unit/0.01ml Soln (100units/ml) SC SCH ×4 (00:02→17:16)
[2021-08-28] MEDS: ACCU-CHEK COMFORT CURVE STRIP VI SCH ×4 (00:03→17:17)
[2021-08-28] MEDS: SOD CHL 0.45% 1,000 ML IV SCH ×2 (00:05→16:30)
[2021-08-28 04:44] LABS: Basophils # (auto) 0 10 ^3/uL (0-0.2); Basophils % (auto) 0.2 % (0.0-2.0); Eosinophils # (auto) 0.2 10 ^3/uL (0-0.8); Eosinophils % (auto) 1.5 % (0.0-7.0); Hematocrit 35.7 % (41.0-53.0); Hemoglobin 11.9 g/dL (13.5-17.5); Lymphocytes # (auto) 0.4 10 ^3/uL (0.4-5.4); Lymphocytes % (auto) 3.6 % (10.0-50.0); Mean Corpuscular Hemoglobin 33.7 pg (28.0-32.0); Mean Corpuscular Hgb Conc. 33.3 g/dL (32.0-36.0); Monocytes # (auto) 0.5 10 ^3/uL (0-1.3); Monocytes % (auto) 4.1 % (0.0-12.0); Neutrophils # (auto) 11.2 10 ^3/uL (1.6-8.6); Neutrophils % (auto) 90.6 % (37.0-80.0); Nucleated Red Blood Cells % 0.2 %; Red Blood Cells 3.53 10^6/uL (4.5-5.90); Red Cell Distribution Width 13.2 % (11.8-14.3); White Blood Cell 12.4 10^3/uL (4.4-10.8)
[2021-08-28 05:10] LABS: Potassium 4.4 mmol/L (3.5-5.1)
[2021-08-28] MEDS: fentaNYL Drip 2500mCg/250mlNS 250 ML IV SCH ×2 (05:20→22:24)
[2021-08-28 05:23] LABS: Albumin 1.5 g/dL (3.4-5.0); Calcium 7.3 mg/dL (8.5-10.1)
[2021-08-28 05:26] LABS: Bilirubin, Total 0.3 mg/dL (0.2-1.0); Phosphorus 3.2 mg/dL (2.5-4.90); Total Protein 4.5 g/dL (6.4-8.2)
[2021-08-28] MEDS: cefTRIAXone 1GM/50ML D5W 50 ML IV SCH (09:06)
[2021-08-28] MEDS: PROPOFOL 100 ML IV SCH ×2 (09:07→15:34)
[2021-08-28] MEDS: NOREPINEPHRINE 8 MG/250ML KIT 250 ML IV SCH (10:30)
[2021-08-28] MEDS: MIDAZOLAM DRIP 50 mg/50mL 50 ML IV SCH (10:30)
[2021-08-28] MEDS: ZINC SULFATE 220mg CAP or TAB PO SCH (11:46)
[2021-08-28] MEDS: CHOLECALCIFEROL (VITD3) 1,000UNIT=25mCg TAB PO SCH (11:46)
[2021-08-28] MEDS: ASCORBIC ACID 500 MG TAB PO SCH (11:46)
[2021-08-28] MEDS: DexAMETHasone SOD PHOS 10MG/1ML VIAL INJ IV SCH (11:46)
[2021-08-28] MEDS: AZITHROMYCIN 500MG/ 250ML 250 ML IV SCH (11:46)
[2021-08-28] MEDS: HEPARIN SODIUM (PORCINE) 5000 UNITS/ML 1ML VIAL SC SCH ×2 (11:47→22:25)
[2021-08-28] MEDS: BACITRACIN TOP OINT 1 UD PKG TOP SCH ×2 (11:48→22:18)
[2021-08-28] MEDS: DOPamine 1600MCG/ML D5W 250 ML IV SCH (12:45)
[2021-08-28] MEDS: hydrALAZINE HCL 20 MG/ML VL IV PRN (14:41)
[2021-08-28] MEDS: TPN PER PHARMACY IV NR ×6 (19:59)
[2021-08-28] MEDS ORDERED: TPN PER PHARMACY IV NR ×8 (20:00)
[2021-08-29] VITALS (14 sets, daily range): BP systolic 79–197; BP diastolic 45–103
[2021-08-29] MEDS: PROPOFOL 100 ML IV SCH ×3 (04:19→23:12)
[2021-08-29] MEDS: SOD CHL 0.45% 1,000 ML IV SCH ×3 (06:11→22:00)
[2021-08-29] MEDS: ACCU-CHEK COMFORT CURVE STRIP VI SCH ×5 (06:12→23:40)
[2021-08-29] MEDS: InsuLIN REG 1unit/0.01ml Soln (100units/ml) SC SCH ×5 (06:12→23:40)
[2021-08-29 06:21] LABS: Basophils # (auto) 0 10 ^3/uL (0-0.2); Eosinophils # (auto) 0.2 10 ^3/uL (0-0.8); Eosinophils % (auto) 2.1 % (0.0-7.0); Hematocrit 35.2 % (41.0-53.0); Hemoglobin 11.8 g/dL (13.5-17.5); Lymphocytes # (auto) 0.4 10 ^3/uL (0.4-5.4); Lymphocytes % (auto) 4.2 % (10.0-50.0); Mean Corpuscular Hgb Conc. 33.5 g/dL (32.0-36.0); Mean Corpuscular Volume 101.4 fL (80.0-100.0); Monocytes # (auto) 0.5 10 ^3/uL (0-1.3); Monocytes % (auto) 5.1 % (0.0-12.0); Neutrophils # (auto) 8.9 10 ^3/uL (1.6-8.6); Neutrophils % (auto) 88.6 % (37.0-80.0); Red Blood Cells 3.47 10^6/uL (4.5-5.90); Red Cell Distribution Width 13.4 % (11.8-14.3)
[2021-08-29 06:30] LABS: Potassium 4.3 mmol/L (3.5-5.1)
[2021-08-29 06:47] LABS: Albumin 1.4 g/dL (3.4-5.0); Bilirubin, Total 0.2 mg/dL (0.2-1.0); Calcium 6.9 mg/dL (8.5-10.1); Magnesium 2.7 mg/dL (1.6-2.6); Phosphorus 2.7 mg/dL (2.5-4.90)
[2021-08-29] MEDS: cefTRIAXone 1GM/50ML D5W 50 ML IV SCH (09:00)
[2021-08-29] MEDS: ZINC SULFATE 220mg CAP or TAB PO SCH (10:00)
[2021-08-29] MEDS: DexAMETHasone SOD PHOS 10MG/1ML VIAL INJ IV SCH (10:00)
[2021-08-29] MEDS: ASCORBIC ACID 500 MG TAB PO SCH (10:00)
[2021-08-29] MEDS: BACITRACIN TOP OINT 1 UD PKG TOP SCH ×2 (10:00→22:12)
[2021-08-29] MEDS: CHOLECALCIFEROL (VITD3) 1,000UNIT=25mCg TAB PO SCH (10:00)
[2021-08-29] MEDS: HEPARIN SODIUM (PORCINE) 5000 UNITS/ML 1ML VIAL SC SCH ×2 (10:00→22:06)
[2021-08-29] MEDS: AZITHROMYCIN 500MG/ 250ML 250 ML IV SCH (10:00)
[2021-08-29] MEDS: MIDAZOLAM DRIP 50 mg/50mL 50 ML IV SCH (10:30)
[2021-08-29] MEDS: NOREPINEPHRINE 8 MG/250ML KIT 250 ML IV SCH (10:30)
[2021-08-29] MEDS: DOPamine 1600MCG/ML D5W 250 ML IV SCH (12:45)
[2021-08-29] MEDS: TPN PER PHARMACY IV NR ×7 (21:32)
[2021-08-30] VITALS (21 sets, daily range): BP systolic 93–190; BP diastolic 0–98
[2021-08-30] MEDS: PROPOFOL 100 ML IV SCH ×3 (04:24→18:20)
[2021-08-30 05:02] LABS: Basophils # (auto) 0.1 10 ^3/uL (0-0.2); Basophils % (auto) 0.6 % (0.0-2.0); Eosinophils # (auto) 0 10 ^3/uL (0-0.8); Eosinophils % (auto) 0.1 % (0.0-7.0); Hematocrit 41.5 % (41.0-53.0); Hemoglobin 13.7 g/dL (13.5-17.5); Lymphocytes # (auto) 0.7 10 ^3/uL (0.4-5.4); Lymphocytes % (auto) 4.2 % (10.0-50.0); Mean Corpuscular Hemoglobin 33.4 pg (28.0-32.0); Mean Corpuscular Volume 100.9 fL (80.0-100.0); Monocytes # (auto) 1.3 10 ^3/uL (0-1.3); Monocytes % (auto) 7.7 % (0.0-12.0); Neutrophils % (auto) 87.4 % (37.0-80.0); Red Blood Cells 4.11 10^6/uL (4.5-5.90); Red Cell Distribution Width 13.7 % (11.8-14.3); White Blood Cell 17.2 10^3/uL (4.4-10.8)
[2021-08-30 05:16] LABS: Albumin 1.5 g/dL (3.4-5.0); Calcium 7.2 mg/dL (8.5-10.1); Magnesium 1.7 mg/dL (1.6-2.6); Potassium 4.1 mmol/L (3.5-5.1)
[2021-08-30 05:18] LABS: BUN/Creatinine Ratio 36.4
[2021-08-30 05:20] LABS: Bilirubin, Total 0.2 mg/dL (0.2-1.0); Phosphorus 1.9 mg/dL (2.5-4.90); Total Protein 4.7 g/dL (6.4-8.2)
[2021-08-30] MEDS: ACCU-CHEK COMFORT CURVE STRIP VI SCH ×4 (05:35→23:56)
[2021-08-30] MEDS: hydrALAZINE HCL 20 MG/ML VL IV PRN (05:42)
[2021-08-30] MEDS: InsuLIN REG 1unit/0.01ml Soln (100units/ml) SC SCH ×4 (05:53→23:56)
[2021-08-30] MEDS: cefTRIAXone 1GM/50ML D5W 50 ML IV SCH (08:45)
[2021-08-30] MEDS: AZITHROMYCIN 500MG/ 250ML 250 ML IV SCH (09:19)
[2021-08-30] MEDS: CHOLECALCIFEROL (VITD3) 1,000UNIT=25mCg TAB PO SCH (09:21)
[2021-08-30] MEDS: DexAMETHasone SOD PHOS 10MG/1ML VIAL INJ IV SCH (09:21)
[2021-08-30] MEDS: ZINC SULFATE 220mg CAP or TAB PO SCH (09:21)
[2021-08-30] MEDS: HEPARIN SODIUM (PORCINE) 5000 UNITS/ML 1ML VIAL SC SCH ×2 (09:21→21:32)
[2021-08-30] MEDS: ASCORBIC ACID 500 MG TAB PO SCH (09:21)
[2021-08-30] MEDS: BACITRACIN TOP OINT 1 UD PKG TOP SCH ×2 (09:22→21:32)
[2021-08-30] MEDS: NOREPINEPHRINE 8 MG/250ML KIT 250 ML IV SCH (09:52)
[2021-08-30] MEDS: MIDAZOLAM DRIP 50 mg/50mL 50 ML IV SCH (09:53)
[2021-08-30] MEDS ORDERED: POTASSIUM PHOSPHATE 26.4 MEQ in SODIUM CHL 0.9% 100 ML IV ONE (10:00)
[2021-08-30] MEDS: SOD CHL 0.45% 1,000 ML IV SCH (10:32)
[2021-08-30] MEDS: DOPamine 1600MCG/ML D5W 250 ML IV SCH (11:37)
[2021-08-30] MEDS: TPN PER PHARMACY IV NR ×7 (19:59)
[2021-08-30] MEDS ORDERED: TPN PER PHARMACY IV NR ×9 (20:00)
[2021-08-31] VITALS (28 sets, daily range): BP systolic 80–210; BP diastolic 43–103
[2021-08-31] MEDS: MIDAZOLAM DRIP 50 mg/50mL 50 ML IV SCH (01:55)
[2021-08-31 05:07] LABS: Basophils # (auto) 0 10 ^3/uL (0-0.2); Basophils % (auto) 0.2 % (0.0-2.0); Eosinophils # (auto) 0.1 10 ^3/uL (0-0.8); Eosinophils % (auto) 0.4 % (0.0-7.0); Hematocrit 35.2 % (41.0-53.0); Hemoglobin 11.6 g/dL (13.5-17.5); Lymphocytes # (auto) 0.5 10 ^3/uL (0.4-5.4); Mean Corpuscular Hemoglobin 33.3 pg (28.0-32.0); Monocytes # (auto) 0.9 10 ^3/uL (0-1.3); Monocytes % (auto) 7.4 % (0.0-12.0); Nucleated Red Blood Cells % 0.1 %; Red Blood Cells 3.48 10^6/uL (4.5-5.90); Red Cell Distribution Width 13.7 % (11.8-14.3); White Blood Cell 12.5 10^3/uL (4.4-10.8)
[2021-08-31 05:44] LABS: Albumin 1.2 g/dL (3.4-5.0); BUN/Creatinine Ratio 36.1; Bilirubin, Total 0.2 mg/dL (0.2-1.0); CRP High Sensitivity 5.23 mg/dL (< 0.3); Calcium 6.9 mg/dL (8.5-10.1); Total Protein 4.4 g/dL (6.4-8.2)
[2021-08-31] MEDS: ACCU-CHEK COMFORT CURVE STRIP VI SCH ×3 (05:45→17:03)
[2021-08-31] MEDS: InsuLIN REG 1unit/0.01ml Soln (100units/ml) SC SCH ×3 (05:45→17:03)
[2021-08-31] MEDS: SOD CHL 0.45% 1,000 ML IV SCH ×2 (05:46→07:00)
[2021-08-31 08:08] LABS: Magnesium 1.7 mg/dL (1.6-2.6); Phosphorus 2.3 mg/dL (2.5-4.90)
[2021-08-31] MEDS: cefTRIAXone 1GM/50ML D5W 50 ML IV SCH (08:33)
[2021-08-31] MEDS: NOREPINEPHRINE 8 MG/250ML KIT 250 ML IV SCH (08:56)
[2021-08-31] MEDS: CHOLECALCIFEROL (VITD3) 1,000UNIT=25mCg TAB PO SCH (08:56)
[2021-08-31] MEDS: ASCORBIC ACID 500 MG TAB PO SCH (08:56)
[2021-08-31] MEDS: ZINC SULFATE 220mg CAP or TAB PO SCH (08:56)
[2021-08-31] MEDS: BACITRACIN TOP OINT 1 UD PKG TOP SCH ×2 (08:56→21:55)
[2021-08-31] MEDS: DexAMETHasone SOD PHOS 10MG/1ML VIAL INJ IV SCH (08:56)
[2021-08-31] MEDS: HEPARIN SODIUM (PORCINE) 5000 UNITS/ML 1ML VIAL SC SCH ×2 (08:56→21:55)
[2021-08-31] MEDS ORDERED: POTASSIUM PHOSPHATE 26.4 MEQ in SODIUM CHL 0.9% 100 ML IV ONE (09:30)
[2021-08-31] MEDS: AZITHROMYCIN 500MG/ 250ML 250 ML IV SCH (09:41)
[2021-08-31] MEDS: hydrALAZINE HCL 20 MG/ML VL IV PRN (09:42)
[2021-08-31] MEDS: PROPOFOL 100 ML IV SCH ×2 (10:12→17:43)
[2021-08-31] MEDS: DOPamine 1600MCG/ML D5W 250 ML IV SCH (11:22)
[2021-08-31] MEDS ORDERED: TPN PER PHARMACY IV NR ×9 (20:00)
[2021-09-01] VITALS (15 sets, daily range): BP systolic 94–169; BP diastolic 42–92
[2021-09-01] MEDS: ACCU-CHEK COMFORT CURVE STRIP VI SCH ×4 (00:20→18:21)
[2021-09-01 04:43] LABS: Basophils # (auto) 0.1 10 ^3/uL (0-0.2); Basophils % (auto) 1.2 % (0.0-2.0); Eosinophils # (auto) 0.1 10 ^3/uL (0-0.8); Eosinophils % (auto) 0.7 % (0.0-7.0); Hemoglobin 11.9 g/dL (13.5-17.5); Lymphocytes # (auto) 0.5 10 ^3/uL (0.4-5.4); Lymphocytes % (auto) 3.9 % (10.0-50.0); Mean Corpuscular Hemoglobin 33.4 pg (28.0-32.0); Mean Corpuscular Hgb Conc. 33.1 g/dL (32.0-36.0); Monocytes # (auto) 0.9 10 ^3/uL (0-1.3); Monocytes % (auto) 7.2 % (0.0-12.0); Neutrophils # (auto) 10.7 10 ^3/uL (1.6-8.6); Red Blood Cells 3.56 10^6/uL (4.5-5.90); Red Cell Distribution Width 13.7 % (11.8-14.3); White Blood Cell 12.3 10^3/uL (4.4-10.8)
[2021-09-01] MEDS: PROPOFOL 100 ML IV SCH (05:10)
[2021-09-01 05:13] LABS: Albumin 1.2 g/dL (3.4-5.0); BUN/Creatinine Ratio 41.7; Calcium 7.6 mg/dL (8.5-10.1); Magnesium 1.6 mg/dL (1.6-2.6); Potassium 3.6 mmol/L (3.5-5.1)
[2021-09-01 05:27] LABS: Bilirubin, Total 0.2 mg/dL (0.2-1.0); Phosphorus 1.9 mg/dL (2.5-4.90); Total Protein 4.3 g/dL (6.4-8.2)
[2021-09-01 05:42] LABS: CRP High Sensitivity 5.38 mg/dL (< 0.3)
[2021-09-01] MEDS: InsuLIN REG 1unit/0.01ml Soln (100units/ml) SC SCH ×4 (05:46→18:20)
[2021-09-01] MEDS ORDERED: hydrALAZINE HCL 20 MG/ML VL IV PRN (08:30)
[2021-09-01] MEDS ORDERED: hydrALAZINE HCL 20 MG/ML VL IV ONE (09:00)
[2021-09-01] MEDS: HEPARIN SODIUM (PORCINE) 5000 UNITS/ML 1ML VIAL SC SCH ×2 (10:00→22:07)
[2021-09-01] MEDS: ZINC SULFATE 220mg CAP or TAB PO SCH (10:00)
[2021-09-01] MEDS: BACITRACIN TOP OINT 1 UD PKG TOP SCH ×2 (10:00→22:07)
[2021-09-01] MEDS: CHOLECALCIFEROL (VITD3) 1,000UNIT=25mCg TAB PO SCH (10:00)
[2021-09-01] MEDS: ASCORBIC ACID 500 MG TAB PO SCH (10:00)
[2021-09-01] MEDS ORDERED: POTASSIUM PHOSPHATE 26.4 MEQ in SODIUM CHL 0.9% 100 ML IV ONE (10:00)
[2021-09-01] MEDS: MIDAZOLAM DRIP 50 mg/50mL 50 ML IV SCH (10:30)
[2021-09-01] MEDS: NOREPINEPHRINE 8 MG/250ML KIT 250 ML IV SCH (10:30)
[2021-09-01] MEDS: DOPamine 1600MCG/ML D5W 250 ML IV SCH (12:45)
[2021-09-01] MEDS: SOD CHL 0.45% 1,000 ML IV SCH (14:40)
[2021-09-01] MEDS ORDERED: TPN PER PHARMACY IV NR ×7 (20:00)
[2021-09-02] VITALS (55 sets, daily range): BP systolic 66–227; BP diastolic 37–108
[2021-09-02] MEDS: ACCU-CHEK COMFORT CURVE STRIP VI SCH ×5 (00:23→23:57)
[2021-09-02] MEDS: SOD CHL 0.45% 1,000 ML IV SCH (02:00)
[2021-09-02] MEDS: PROPOFOL 100 ML IV SCH ×2 (02:00→08:11)
[2021-09-02 05:13] LABS: Basophils # (auto) 0.2 10 ^3/uL (0-0.2); Eosinophils # (auto) 0.1 10 ^3/uL (0-0.8); Eosinophils % (auto) 0.8 % (0.0-7.0); Hematocrit 39.9 % (41.0-53.0); Hemoglobin 13.2 g/dL (13.5-17.5); Lymphocytes # (auto) 0.4 10 ^3/uL (0.4-5.4); Lymphocytes % (auto) 2.9 % (10.0-50.0); Mean Corpuscular Hemoglobin 33.6 pg (28.0-32.0); Mean Corpuscular Hgb Conc. 33.1 g/dL (32.0-36.0); Mean Corpuscular Volume 101.5 fL (80.0-100.0); Monocytes # (auto) 1.1 10 ^3/uL (0-1.3); Monocytes % (auto) 7.5 % (0.0-12.0); Neutrophils # (auto) 13.1 10 ^3/uL (1.6-8.6); Neutrophils % (auto) 87.8 % (37.0-80.0); Red Blood Cells 3.93 10^6/uL (4.5-5.90); Red Cell Distribution Width 14.1 % (11.8-14.3); White Blood Cell 14.9 10^3/uL (4.4-10.8)
[2021-09-02 05:27] LABS: Albumin 1.5 g/dL (3.4-5.0); Calcium 7.6 mg/dL (8.5-10.1); Magnesium 1.7 mg/dL (1.6-2.6); Potassium 3.5 mmol/L (3.5-5.1)
[2021-09-02] MEDS: InsuLIN REG 1unit/0.01ml Soln (100units/ml) SC SCH ×5 (05:33→23:57)
[2021-09-02 05:37] LABS: BUN/Creatinine Ratio 43.5; CRP High Sensitivity 6.8 mg/dL (< 0.3); Phosphorus 2.8 mg/dL (2.5-4.90); Total Protein 5.3 g/dL (6.4-8.2)
[2021-09-02 06:15] LABS: Bilirubin, Total 0.3 mg/dL (0.2-1.0)
[2021-09-02 07:47] LABS: Pre Albumin 21.6 mg/dL (20.0-40.0)
[2021-09-02] MEDS: ZINC SULFATE 220mg CAP or TAB PO SCH (10:15)
[2021-09-02] MEDS: CHOLECALCIFEROL (VITD3) 1,000UNIT=25mCg TAB PO SCH (10:15)
[2021-09-02] MEDS: NOREPINEPHRINE 8 MG/250ML KIT 250 ML IV SCH (10:16)
[2021-09-02] MEDS: HEPARIN SODIUM (PORCINE) 5000 UNITS/ML 1ML VIAL SC SCH ×2 (10:16→20:48)
[2021-09-02] MEDS: BACITRACIN TOP OINT 1 UD PKG TOP SCH ×2 (10:16→20:47)
[2021-09-02] MEDS: ASCORBIC ACID 500 MG TAB PO SCH (10:16)
[2021-09-02] MEDS: MIDAZOLAM DRIP 50 mg/50mL 50 ML IV SCH (10:17)
[2021-09-02] MEDS: DOPamine 1600MCG/ML D5W 250 ML IV SCH (12:45)
[2021-09-02] MEDS ORDERED: TPN PER PHARMACY IV NR ×9 (20:00)
[2021-09-03] VITALS (22 sets, daily range): BP systolic 46–205; BP diastolic 27–98
[2021-09-03 04:33] LABS: Basophils # (auto) 0.1 10 ^3/uL (0-0.2); Basophils % (auto) 0.6 % (0.0-2.0); Eosinophils # (auto) 0 10 ^3/uL (0-0.8); Eosinophils % (auto) 0.3 % (0.0-7.0); Hematocrit 36.8 % (41.0-53.0); Hemoglobin 12.1 g/dL (13.5-17.5); Lymphocytes # (auto) 0.3 10 ^3/uL (0.4-5.4); Lymphocytes % (auto) 2.5 % (10.0-50.0); Mean Corpuscular Hemoglobin 33.3 pg (28.0-32.0); Mean Corpuscular Hgb Conc. 32.8 g/dL (32.0-36.0); Mean Corpuscular Volume 101.5 fL (80.0-100.0); Monocytes # (auto) 0.7 10 ^3/uL (0-1.3); Monocytes % (auto) 4.9 % (0.0-12.0); Neutrophils # (auto) 12.9 10 ^3/uL (1.6-8.6); Neutrophils % (auto) 91.7 % (37.0-80.0); Nucleated Red Blood Cells % 0.2 %; Red Blood Cells 3.63 10^6/uL (4.5-5.90); Red Cell Distribution Width 14.2 % (11.8-14.3); White Blood Cell 14.1 10^3/uL (4.4-10.8)
[2021-09-03 04:54] LABS: Calcium 7.4 mg/dL (8.5-10.1); Magnesium 2.1 mg/dL (1.6-2.6)
[2021-09-03 05:04] LABS: Albumin 1.4 g/dL (3.4-5.0); Bilirubin, Total 0.2 mg/dL (0.2-1.0); CRP High Sensitivity 5.9 mg/dL (< 0.3); Phosphorus 3.1 mg/dL (2.5-4.90); Total Protein 5.1 g/dL (6.4-8.2)
[2021-09-03] MEDS: ACCU-CHEK COMFORT CURVE STRIP VI SCH ×4 (06:00→23:44)
[2021-09-03] MEDS: InsuLIN REG 1unit/0.01ml Soln (100units/ml) SC SCH ×4 (06:00→23:44)
[2021-09-03] MEDS: ASCORBIC ACID 500 MG TAB PO SCH (09:54)
[2021-09-03] MEDS: ZINC SULFATE 220mg CAP or TAB PO SCH (09:54)
[2021-09-03] MEDS: CHOLECALCIFEROL (VITD3) 1,000UNIT=25mCg TAB PO SCH (09:55)
[2021-09-03] MEDS: HEPARIN SODIUM (PORCINE) 5000 UNITS/ML 1ML VIAL SC SCH ×2 (09:55→22:59)
[2021-09-03] MEDS: BACITRACIN TOP OINT 1 UD PKG TOP SCH ×2 (09:56→22:58)
[2021-09-03] MEDS: NOREPINEPHRINE 8 MG/250ML KIT 250 ML IV SCH (15:26)
[2021-09-03] MEDS ORDERED: TPN PER PHARMACY IV NR ×9 (20:00)
[2021-09-03] MEDS: PROPOFOL 100 ML IV SCH (22:30)
[2021-09-03] MEDS: DOPamine 1600MCG/ML D5W 250 ML IV SCH (23:00)
[2021-09-04] VITALS (28 sets, daily range): BP systolic 90–162; BP diastolic 40–103
[2021-09-04] MEDS: ACCU-CHEK COMFORT CURVE STRIP VI SCH ×3 (05:31→17:45)
[2021-09-04] MEDS: InsuLIN REG 1unit/0.01ml Soln (100units/ml) SC SCH ×3 (05:31→17:45)
[2021-09-04 05:46] LABS: Basophils # (auto) 0.1 10 ^3/uL (0-0.2); Basophils % (auto) 0.6 % (0.0-2.0); Eosinophils # (auto) 0.2 10 ^3/uL (0-0.8); Eosinophils % (auto) 1.6 % (0.0-7.0); Hematocrit 31.7 % (41.0-53.0); Hemoglobin 10.6 g/dL (13.5-17.5); Lymphocytes # (auto) 0.4 10 ^3/uL (0.4-5.4); Lymphocytes % (auto) 3.4 % (10.0-50.0); Mean Corpuscular Hemoglobin 33.9 pg (28.0-32.0); Mean Corpuscular Hgb Conc. 33.6 g/dL (32.0-36.0); Monocytes # (auto) 0.9 10 ^3/uL (0-1.3); Monocytes % (auto) 7.1 % (0.0-12.0); Neutrophils # (auto) 10.9 10 ^3/uL (1.6-8.6); Neutrophils % (auto) 87.3 % (37.0-80.0); Red Blood Cells 3.14 10^6/uL (4.5-5.90); Red Cell Distribution Width 13.7 % (11.8-14.3); White Blood Cell 12.5 10^3/uL (4.4-10.8)
[2021-09-04] MEDS: PROPOFOL 100 ML IV SCH ×4 (06:24→21:28)
[2021-09-04 06:36] LABS: Potassium 3.7 mmol/L (3.5-5.1)
[2021-09-04 06:45] LABS: Albumin 1.2 g/dL (3.4-5.0); BUN/Creatinine Ratio 51.5; Bilirubin, Total 0.2 mg/dL (0.2-1.0); Calcium 7.1 mg/dL (8.5-10.1); Phosphorus 2.1 mg/dL (2.5-4.90); Total Protein 4.5 g/dL (6.4-8.2)
[2021-09-04] MEDS ORDERED: POTASSIUM PHOSPHATE 26.4 MEQ in SODIUM CHL 0.9% 100 ML IV ONE (08:45)
[2021-09-04] MEDS: ASCORBIC ACID 500 MG TAB PO SCH (09:22)
[2021-09-04] MEDS: ZINC SULFATE 220mg CAP or TAB PO SCH (09:22)
[2021-09-04] MEDS: CHOLECALCIFEROL (VITD3) 1,000UNIT=25mCg TAB PO SCH (09:23)
[2021-09-04] MEDS: HEPARIN SODIUM (PORCINE) 5000 UNITS/ML 1ML VIAL SC SCH ×2 (09:24→21:52)
[2021-09-04] MEDS: BACITRACIN TOP OINT 1 UD PKG TOP SCH ×2 (10:00→21:52)
[2021-09-04] MEDS: DOPamine 1600MCG/ML D5W 250 ML IV SCH (12:45)
[2021-09-04] MEDS ORDERED: TPN PER PHARMACY IV NR ×9 (20:00)
[2021-09-05] VITALS (40 sets, daily range): BP systolic 87–150; BP diastolic 46–79
[2021-09-05] MEDS: ACCU-CHEK COMFORT CURVE STRIP VI SCH ×4 (00:31→17:24)
[2021-09-05] MEDS: PROPOFOL 100 ML IV SCH ×2 (00:55→10:39)
[2021-09-05 04:26] LABS: Basophils # (auto) 0.1 10 ^3/uL (0-0.2); Eosinophils # (auto) 0.2 10 ^3/uL (0-0.8); Lymphocytes # (auto) 0.4 10 ^3/uL (0.4-5.4); Red Cell Distribution Width 13.8 % (11.8-14.3)
[2021-09-05 04:29] LABS: BUN/Creatinine Ratio 51.7; Calcium 6.5 mg/dL (8.5-10.1); Magnesium 2.2 mg/dL (1.6-2.6); Potassium 3.6 mmol/L (3.5-5.1)
[2021-09-05 04:31] LABS: Hemoglobin 8.5 g/dL (13.5-17.5); Mean Corpuscular Hemoglobin 34.5 pg (28.0-32.0); Mean Corpuscular Hgb Conc. 34.1 g/dL (32.0-36.0); Monocytes # (auto) 0.6 10 ^3/uL (0-1.3); Neutrophils # (auto) 8.2 10 ^3/uL (1.6-8.6); Red Blood Cells 2.47 10^6/uL (4.5-5.90); White Blood Cell 9.4 10^3/uL (4.4-10.8)
[2021-09-05 04:32] LABS: Bilirubin, Total 0.2 mg/dL (0.2-1.0); Phosphorus 1.9 mg/dL (2.5-4.90); Total Protein 3.8 g/dL (6.4-8.2)
[2021-09-05 04:41] LABS: Albumin 0.9 g/dL (3.4-5.0)
[2021-09-05] MEDS: InsuLIN REG 1unit/0.01ml Soln (100units/ml) SC SCH ×4 (06:00→17:23)
[2021-09-05] MEDS: ZINC SULFATE 220mg CAP or TAB PO SCH (09:08)
[2021-09-05] MEDS: HEPARIN SODIUM (PORCINE) 5000 UNITS/ML 1ML VIAL SC SCH ×2 (09:09→21:50)
[2021-09-05] MEDS: ASCORBIC ACID 500 MG TAB PO SCH (09:09)
[2021-09-05] MEDS: CHOLECALCIFEROL (VITD3) 1,000UNIT=25mCg TAB PO SCH (09:09)
[2021-09-05] MEDS: BACITRACIN TOP OINT 1 UD PKG TOP SCH ×2 (09:10→22:00)
[2021-09-05] MEDS ORDERED: POTASSIUM PHOSPHATE 26.4 MEQ in SODIUM CHL 0.9% 100 ML IV ONE (10:30)
[2021-09-05] MEDS: DOPamine 1600MCG/ML D5W 250 ML IV SCH (12:45)
[2021-09-05] MEDS ORDERED: TPN PER PHARMACY IV NR ×9 (20:00)
[2021-09-05] MEDS: ALBUTEROL SULF 2.5 MG/0.5ML(0.5%) NEB SOLN NEB PRN (21:22)
[2021-09-05] MEDS: NOREPINEPHRINE 8 MG/250ML KIT 250 ML IV SCH (21:40)
[2021-09-06] VITALS (18 sets, daily range): BP systolic 84–162; BP diastolic 42–78
[2021-09-06 05:33] LABS: Basophils # (auto) 0.1 10 ^3/uL (0-0.2); Eosinophils # (auto) 0.3 10 ^3/uL (0-0.8); Monocytes # (auto) 0.8 10 ^3/uL (0-1.3); Neutrophils # (auto) 8.5 10 ^3/uL (1.6-8.6)
[2021-09-06 05:36] LABS: Eosinophils % (auto) 2.8 % (0.0-7.0); Hematocrit 33.3 % (41.0-53.0); Hemoglobin 11.4 g/dL (13.5-17.5); Lymphocytes # (auto) 0.5 10 ^3/uL (0.4-5.4); Lymphocytes % (auto) 4.6 % (10.0-50.0); Mean Corpuscular Hemoglobin 34.6 pg (28.0-32.0); Mean Corpuscular Hgb Conc. 34.2 g/dL (32.0-36.0); Mean Corpuscular Volume 101.2 fL (80.0-100.0); Monocytes % (auto) 7.8 % (0.0-12.0); Neutrophils % (auto) 83.8 % (37.0-80.0); Red Blood Cells 3.29 10^6/uL (4.5-5.90); Red Cell Distribution Width 13.9 % (11.8-14.3); White Blood Cell 10.2 10^3/uL (4.4-10.8)
[2021-09-06] MEDS: InsuLIN REG 1unit/0.01ml Soln (100units/ml) SC SCH ×4 (06:00→17:44)
[2021-09-06] MEDS: ACCU-CHEK COMFORT CURVE STRIP VI SCH ×4 (06:02→17:44)
[2021-09-06 06:04] LABS: Potassium 4.6 mmol/L (3.5-5.1)
[2021-09-06 06:19] LABS: Magnesium 2.2 mg/dL (1.6-2.6); Phosphorus 3.3 mg/dL (2.5-4.90)
[2021-09-06 06:29] LABS: Albumin 1.5 g/dL (3.4-5.0); BUN/Creatinine Ratio 49.3; Bilirubin, Total 0.4 mg/dL (0.2-1.0); Calcium 7.5 mg/dL (8.5-10.1); Total Protein 4.8 g/dL (6.4-8.2)
[2021-09-06] MEDS: BACITRACIN TOP OINT 1 UD PKG TOP SCH ×2 (09:14→22:00)
[2021-09-06] MEDS: HEPARIN SODIUM (PORCINE) 5000 UNITS/ML 1ML VIAL SC SCH ×2 (09:14→22:00)
[2021-09-06] MEDS: CHOLECALCIFEROL (VITD3) 1,000UNIT=25mCg TAB PO SCH (09:15)
[2021-09-06] MEDS: ASCORBIC ACID 500 MG TAB PO SCH (09:15)
[2021-09-06] MEDS: ZINC SULFATE 220mg CAP or TAB PO SCH (09:15)
[2021-09-06] MEDS: NOREPINEPHRINE 8 MG/250ML KIT 250 ML IV SCH (10:30)
[2021-09-06] MEDS: DOPamine 1600MCG/ML D5W 250 ML IV SCH (12:45)
[2021-09-06] MEDS: PROPOFOL 100 ML IV SCH ×2 (15:17→16:55)
[2021-09-06] MEDS ORDERED: TPN PER PHARMACY IV NR ×8 (20:00)
[2021-09-07] VITALS (17 sets, daily range): BP systolic 103–172; BP diastolic 57–85
[2021-09-07] MEDS: ACCU-CHEK COMFORT CURVE STRIP VI SCH ×4 (00:13→18:00)
[2021-09-07 05:02] LABS: Lymphocytes # (auto) 0.3 10 ^3/uL (0.4-5.4); Monocytes # (auto) 0.6 10 ^3/uL (0-1.3); Neutrophils # (auto) 5.4 10 ^3/uL (1.6-8.6); White Blood Cell 6.7 10^3/uL (4.4-10.8)
[2021-09-07 05:10] LABS: Basophils # (auto) 0 10 ^3/uL (0-0.2); Basophils % (auto) 0.5 % (0.0-2.0); Eosinophils # (auto) 0.3 10 ^3/uL (0-0.8); Eosinophils % (auto) 4.4 % (0.0-7.0); Hematocrit 30.4 % (41.0-53.0); Hemoglobin 10.3 g/dL (13.5-17.5); Lymphocytes % (auto) 4.9 % (10.0-50.0); Mean Corpuscular Hemoglobin 34.2 pg (28.0-32.0); Mean Corpuscular Hgb Conc. 33.8 g/dL (32.0-36.0); Mean Corpuscular Volume 101.3 fL (80.0-100.0); Monocytes % (auto) 9.2 % (0.0-12.0); Red Cell Distribution Width 14.2 % (11.8-14.3)
[2021-09-07 05:21] LABS: Potassium 4.5 mmol/L (3.5-5.1)
[2021-09-07 05:31] LABS: Albumin 1.2 g/dL (3.4-5.0); BUN/Creatinine Ratio 50.5; Magnesium 2.5 mg/dL (1.6-2.6)
[2021-09-07 05:32] LABS: INR 0.99 (0.9-1.15); Partial Thromboplastin Time 29.6 sec (23.6-33.0)
[2021-09-07 05:34] LABS: Bilirubin, Total 0.4 mg/dL (0.2-1.0); Phosphorus 4.1 mg/dL (2.5-4.90); Total Protein 5.2 g/dL (6.4-8.2)
[2021-09-07] MEDS: InsuLIN REG 1unit/0.01ml Soln (100units/ml) SC SCH ×4 (06:00→18:00)
[2021-09-07] MEDS: BACITRACIN TOP OINT 1 UD PKG TOP SCH ×2 (09:46→22:00)
[2021-09-07] MEDS: ZINC SULFATE 220mg CAP or TAB PO SCH (09:46)
[2021-09-07] MEDS: ASCORBIC ACID 500 MG TAB PO SCH (09:46)
[2021-09-07] MEDS: CHOLECALCIFEROL (VITD3) 1,000UNIT=25mCg TAB PO SCH (09:46)
[2021-09-07] MEDS: HEPARIN SODIUM (PORCINE) 5000 UNITS/ML 1ML VIAL SC SCH ×2 (09:47→22:00)
[2021-09-07] MEDS ORDERED: TPN PER PHARMACY IV NR ×8 (20:00)
[2021-09-07] MEDS: DOPamine 1600MCG/ML D5W 250 ML IV SCH (22:58)
[2021-09-07] MEDS: NOREPINEPHRINE 8 MG/250ML KIT 250 ML IV SCH (22:58)
[2021-09-08] VITALS (16 sets, daily range): BP systolic 103–176; BP diastolic 54–91
[2021-09-08] MEDS: ACCU-CHEK COMFORT CURVE STRIP VI SCH ×5 (00:25→23:32)
[2021-09-08 04:24] LABS: Hemoglobin 9.9 g/dL (13.5-17.5); Red Blood Cells 2.91 10^6/uL (4.5-5.90); White Blood Cell 5.5 10^3/uL (4.4-10.8)
[2021-09-08 04:27] LABS: Hematocrit 29.6 % (41.0-53.0); Mean Corpuscular Hgb Conc. 33.4 g/dL (32.0-36.0); Mean Corpuscular Volume 101.6 fL (80.0-100.0); Red Cell Distribution Width 14.2 % (11.8-14.3)
[2021-09-08 04:34] LABS: Albumin 1.2 g/dL (3.4-5.0); BUN/Creatinine Ratio 51.8; Magnesium 2.2 mg/dL (1.6-2.6); Potassium 4.5 mmol/L (3.5-5.1)
[2021-09-08 04:36] LABS: Bilirubin, Total 0.3 mg/dL (0.2-1.0); Phosphorus 2.7 mg/dL (2.5-4.90); Total Protein 5.2 g/dL (6.4-8.2)
[2021-09-08 05:18] LABS: Basophils % (manual) 0 (0.0-2.0); Blast Cells 0; Metamyelocytes % 0; Promyelocytes % 0; Reactive Lymphocytes 0
[2021-09-08 05:46] LABS: Lymphocytes % (manual) 12 (10.0-50.0); Monocytes % (manual) 9 (0-12)
[2021-09-08 05:47] LABS: Band Neutrophils % (manual) 9; Eosinophils % (manual) 7 (0-7); Myelocytes % 1
[2021-09-08] MEDS: InsuLIN REG 1unit/0.01ml Soln (100units/ml) SC SCH ×4 (06:00→23:32)
[2021-09-08] MEDS: HEPARIN SODIUM (PORCINE) 5000 UNITS/ML 1ML VIAL SC SCH ×2 (10:00→20:53)
[2021-09-08] MEDS: ASCORBIC ACID 500 MG TAB PO SCH (10:00)
[2021-09-08] MEDS: BACITRACIN TOP OINT 1 UD PKG TOP SCH ×2 (10:00→20:53)
[2021-09-08] MEDS: CHOLECALCIFEROL (VITD3) 1,000UNIT=25mCg TAB PO SCH (10:00)
[2021-09-08] MEDS: ZINC SULFATE 220mg CAP or TAB PO SCH (10:00)
[2021-09-08] MEDS: PROPOFOL 100 ML IV SCH ×4 (10:30→23:04)
[2021-09-08] MEDS ORDERED: TPN PER PHARMACY IV NR ×8 (20:00)
[2021-09-08] MEDS: DOPamine 1600MCG/ML D5W 250 ML IV SCH (20:50)
[2021-09-08] MEDS: NOREPINEPHRINE 8 MG/250ML KIT 250 ML IV SCH (20:50)
[2021-09-09] VITALS (25 sets, daily range): BP systolic 89–172; BP diastolic 50–91
[2021-09-09 04:57] LABS: Basophils # (auto) 0.1 10 ^3/uL (0-0.2); Eosinophils # (auto) 0.4 10 ^3/uL (0-0.8); Monocytes # (auto) 0.5 10 ^3/uL (0-1.3); Red Cell Distribution Width 14.2 % (11.8-14.3)
[2021-09-09 05:02] LABS: Basophils % (auto) 1.5 % (0.0-2.0); Eosinophils % (auto) 7.1 % (0.0-7.0); Hematocrit 28.9 % (41.0-53.0); Hemoglobin 9.7 g/dL (13.5-17.5); Lymphocytes # (auto) 0.6 10 ^3/uL (0.4-5.4); Lymphocytes % (auto) 11.5 % (10.0-50.0); Mean Corpuscular Hemoglobin 34.2 pg (28.0-32.0); Mean Corpuscular Hgb Conc. 33.5 g/dL (32.0-36.0); Mean Corpuscular Volume 102.2 fL (80.0-100.0); Monocytes % (auto) 9.9 % (0.0-12.0); Neutrophils # (auto) 3.5 10 ^3/uL (1.6-8.6); Nucleated Red Blood Cells % 0.3 %; Red Blood Cells 2.83 10^6/uL (4.5-5.90)
[2021-09-09 05:21] LABS: Albumin 1.2 g/dL (3.4-5.0); Calcium 7.8 mg/dL (8.5-10.1); Magnesium 2.6 mg/dL (1.6-2.6); Potassium 4.1 mmol/L (3.5-5.1)
[2021-09-09 05:27] LABS: BUN/Creatinine Ratio 58.6; Bilirubin, Total 0.3 mg/dL (0.2-1.0); Phosphorus 2.3 mg/dL (2.5-4.90); Pre Albumin 18.3 mg/dL (20.0-40.0); Total Protein 5.1 g/dL (6.4-8.2)
[2021-09-09] MEDS: InsuLIN REG 1unit/0.01ml Soln (100units/ml) SC SCH ×3 (06:00→18:00)
[2021-09-09] MEDS: ACCU-CHEK COMFORT CURVE STRIP VI SCH ×3 (06:02→18:00)
[2021-09-09] MEDS ORDERED: POTASSIUM PHOSPHATE 26.4 MEQ in SODIUM CHL 0.9% 100 ML IV ONE (09:00)
[2021-09-09] MEDS: BACITRACIN TOP OINT 1 UD PKG TOP SCH ×2 (09:50→22:18)
[2021-09-09] MEDS: ASCORBIC ACID 500 MG TAB PO SCH (09:50)
[2021-09-09] MEDS: ZINC SULFATE 220mg CAP or TAB PO SCH (09:50)
[2021-09-09] MEDS: CHOLECALCIFEROL (VITD3) 1,000UNIT=25mCg TAB PO SCH (09:50)
[2021-09-09] MEDS: HEPARIN SODIUM (PORCINE) 5000 UNITS/ML 1ML VIAL SC SCH ×2 (10:00→22:00)
[2021-09-09] MEDS: PROPOFOL 100 ML IV SCH (10:00)
[2021-09-09] MEDS: NOREPINEPHRINE 8 MG/250ML KIT 250 ML IV SCH (10:30)
[2021-09-09] MEDS: DOPamine 1600MCG/ML D5W 250 ML IV SCH (12:45)
[2021-09-09] MEDS ORDERED: TPN PER PHARMACY IV NR ×7 (20:00)
[2021-09-10] VITALS (29 sets, daily range): BP systolic 90–156; BP diastolic 49–89
[2021-09-10] MEDS: ACCU-CHEK COMFORT CURVE STRIP VI SCH ×4 (00:29→18:00)
[2021-09-10] MEDS: PROPOFOL 100 ML IV SCH ×3 (04:00→18:00)
[2021-09-10 04:47] LABS: Albumin 1.3 g/dL (3.4-5.0); Calcium 7.5 mg/dL (8.5-10.1); Magnesium 2.6 mg/dL (1.6-2.6); Potassium 4.2 mmol/L (3.5-5.1)
[2021-09-10 04:52] LABS: Bilirubin, Total 0.2 mg/dL (0.2-1.0); Phosphorus 2.5 mg/dL (2.5-4.90); Total Protein 5.2 g/dL (6.4-8.2)
[2021-09-10 05:05] LABS: Basophils # (auto) 0.1 10 ^3/uL (0-0.2); Basophils % (auto) 1.4 % (0.0-2.0); Eosinophils # (auto) 0.4 10 ^3/uL (0-0.8); Eosinophils % (auto) 7.8 % (0.0-7.0); Hematocrit 28.9 % (41.0-53.0); Hemoglobin 9.6 g/dL (13.5-17.5); Lymphocytes # (auto) 0.5 10 ^3/uL (0.4-5.4); Lymphocytes % (auto) 8.9 % (10.0-50.0); Mean Corpuscular Hemoglobin 33.6 pg (28.0-32.0); Mean Corpuscular Hgb Conc. 33.2 g/dL (32.0-36.0); Monocytes # (auto) 0.6 10 ^3/uL (0-1.3); Monocytes % (auto) 10.6 % (0.0-12.0); Neutrophils # (auto) 3.8 10 ^3/uL (1.6-8.6); Neutrophils % (auto) 71.3 % (37.0-80.0); Nucleated Red Blood Cells % 0.2 %; Red Blood Cells 2.86 10^6/uL (4.5-5.90); Red Cell Distribution Width 14.6 % (11.8-14.3); White Blood Cell 5.3 10^3/uL (4.4-10.8)
[2021-09-10] MEDS: InsuLIN REG 1unit/0.01ml Soln (100units/ml) SC SCH ×4 (05:57→18:00)
[2021-09-10] MEDS: HEPARIN SODIUM (PORCINE) 5000 UNITS/ML 1ML VIAL SC SCH ×2 (10:00→21:41)
[2021-09-10] MEDS: ASCORBIC ACID 500 MG TAB PO SCH (10:27)
[2021-09-10] MEDS: NOREPINEPHRINE 8 MG/250ML KIT 250 ML IV SCH (10:27)
[2021-09-10] MEDS: CHOLECALCIFEROL (VITD3) 1,000UNIT=25mCg TAB PO SCH (10:27)
[2021-09-10] MEDS: ZINC SULFATE 220mg CAP or TAB PO SCH (10:27)
[2021-09-10] MEDS: DOPamine 1600MCG/ML D5W 250 ML IV SCH (12:45)
[2021-09-10] MEDS ORDERED: TPN PER PHARMACY IV NR ×6 (20:00)
[2021-09-11] VITALS (29 sets, daily range): BP systolic 97–172; BP diastolic 51–94
[2021-09-11] MEDS: ACCU-CHEK COMFORT CURVE STRIP VI SCH ×5 (00:21→18:26)
[2021-09-11 05:17] LABS: Hematocrit 27.6 % (41.0-53.0); Hemoglobin 9.3 g/dL (13.5-17.5); Mean Corpuscular Hemoglobin 33.9 pg (28.0-32.0); Mean Corpuscular Hgb Conc. 33.8 g/dL (32.0-36.0); Mean Corpuscular Volume 100.3 fL (80.0-100.0); Red Blood Cells 2.75 10^6/uL (4.5-5.90); Red Cell Distribution Width 14.2 % (11.8-14.3); White Blood Cell 5.5 10^3/uL (4.4-10.8)
[2021-09-11 05:57] LABS: Albumin 1.2 g/dL (3.4-5.0); Calcium 7.6 mg/dL (8.5-10.1); Magnesium 1.8 mg/dL (1.6-2.6); Potassium 4.3 mmol/L (3.5-5.1)
[2021-09-11 05:59] LABS: BUN/Creatinine Ratio 48.5
[2021-09-11] MEDS: InsuLIN REG 1unit/0.01ml Soln (100units/ml) SC SCH ×4 (06:00→18:00)
[2021-09-11 06:03] LABS: Bilirubin, Total 0.3 mg/dL (0.2-1.0); Phosphorus 2.7 mg/dL (2.5-4.90)
[2021-09-11 06:24] LABS: Basophils % (manual) 0 (0.0-2.0); Blast Cells 0; Myelocytes % 0; Promyelocytes % 0; Reactive Lymphocytes 0
[2021-09-11] MEDS: HEPARIN SODIUM (PORCINE) 5000 UNITS/ML 1ML VIAL SC SCH (10:00)
[2021-09-11] MEDS: CHOLECALCIFEROL (VITD3) 1,000UNIT=25mCg TAB PO SCH (10:00)
[2021-09-11] MEDS: ASCORBIC ACID 500 MG TAB PO SCH (10:00)
[2021-09-11] MEDS: PROPOFOL 100 ML IV SCH ×2 (10:00→18:26)
[2021-09-11] MEDS: ZINC SULFATE 220mg CAP or TAB PO SCH (10:00)
[2021-09-11] MEDS: NOREPINEPHRINE 8 MG/250ML KIT 250 ML IV SCH (10:30)
[2021-09-11] MEDS: DOPamine 1600MCG/ML D5W 250 ML IV SCH (11:07)
[2021-09-11 13:28] LABS: Band Neutrophils % (manual) 5; Eosinophils % (manual) 6 (0-7); Lymphocytes % (manual) 11 (10.0-50.0); Metamyelocytes % 1; Monocytes % (manual) 10 (0-12)
[2021-09-11] MEDS ORDERED: TPN PER PHARMACY IV NR ×6 (20:00)
== END 2021-09-11 21:00 | DRG 207 ==
LOC: ER 09:39 → EDBD 09:39 → EAST 16:05 → ER 17:42 → TELE-EAST 08-16 00:13 → TELE-E-ADS 08-17 05:35 → ICU WEST 08-18 08:40
PROVIDERS: ADMIT Internal Medicine; ATTEND Internal Medicine
PROC: XW033E5 Introduction of Remdesivir Anti-infective into Peripheral Vein, Percutaneous Approach, New Technology Group 5 (ICD-10-PCS; 2021-08-17)
PROC: 5A1955Z Respiratory Ventilation, Greater than 96 Consecutive Hours (ICD-10-PCS; principal; 2021-08-18)
PROC: 0BH17EZ Insertion of Endotracheal Airway into Trachea, Via Natural or Artificial Opening (ICD-10-PCS; 2021-08-18)
PROC: 02HV33Z Insertion of Infusion Device into Superior Vena Cava, Percutaneous Approach (ICD-10-PCS; 2021-08-18)
PROC: B548ZZA Ultrasonography of Superior Vena Cava, Guidance (ICD-10-PCS; 2021-08-18)
PROC: 04HY32Z Insertion of Monitoring Device into Lower Artery, Percutaneous Approach (ICD-10-PCS; 2021-08-18)
PROC: 4A133B1 Monitoring of Arterial Pressure, Peripheral, Percutaneous Approach (ICD-10-PCS; 2021-08-18)
PROC: 4A133J1 Monitoring of Arterial Pulse, Peripheral, Percutaneous Approach (ICD-10-PCS; 2021-08-18)
DX: U07.1 COVID-19 (principal); J12.82 Pneumonia due to coronavirus disease 2019; J96.01 Acute respiratory failure with hypoxia; N17.9 Acute kidney failure, unspecified; E87.0 Hyperosmolality and hypernatremia; J98.11 Atelectasis; J44.0 Chronic obstructive pulmonary disease with (acute) lower respiratory infection; E66.9 Obesity, unspecified; N18.9 Chronic kidney disease, unspecified; D72.829 Elevated white blood cell count, unspecified; I35.0 Nonrheumatic aortic (valve) stenosis; I16.0 Hypertensive urgency; E78.5 Hyperlipidemia, unspecified; I12.9 Hypertensive chronic kidney disease with stage 1 through stage 4 chronic kidney disease, or unspecified chronic kidney disease; Z66 Do not resuscitate; E88.09 Other disorders of plasma-protein metabolism, not elsewhere classified; Z68.36 Body mass index [BMI] 36.0-36.9, adult
CPT/HCPCS: 36415; 36600; 71045; 80048; 80053; 80076; 81001; 82040; 82570; 82728; 82805; 82962; 83605; 83615; 83735; 83880; 84100; 84156; 84300; 84478; 84484; 85007; 85025; 85027; 85379; 85610; 85730; 86141; 87040; 87081; 87426; 93005; 93306; 93970; 94002; 94003; 94640; 96365; 96368; 96375; 99291; A4565; G0378; J0696; J1100; J1815; J2250; J2704; J3490; J7060